=== PATIENT | male | born 1970 | race Caucasian/White ===

== ENCOUNTER → 2019-04-13 15:31 | Outpatient (CLI) | payer OTHER, MEDICAID, SELFPAY | PROVIDERS: Family Provider Family Medicine; PCP Family Medicine; Visit Provider Physician Assistant | DX: R07.0 Pain in throat (principal) | CPT/HCPCS: 87070; 87077; 87147 ==

== ENCOUNTER → 2021-01-20 08:03 | Outpatient (CLI) | payer OTHER, MEDICAID, SELFPAY ==
[2021-01-20 09:32] LABS: Add Manual Diff / Slide Review NO; Basophils Absolute Auto 0 /uL (0-100); Basophils Percent Auto 0.6 % (0-2); Eosinophils Absolute Auto 500 /uL (0-450); Eosinophils Percent Auto 7.2 % (2-4); Hemoglobin 16.2 g/dL (13.5-17.5); Lymphocytes Absolute Auto 1800 /uL (1100-4500); Lymphocytes Percent Auto 25.9 % (25-40); Mean Corpuscular HGB Conc 34.5 % (30-36); Mean Corpuscular Hemoglobin 31.1 PG (26-34); Mean Corpuscular Volume 90.1 fL (80-100); Monocytes Absolute Auto 700 /uL (0-900); Monocytes Percent Auto 9.9 % (3-14); Neutrophils Absolute Auto 3900 /uL (1500-7000); Neutrophils Percent Auto 56.4 % (50-75); Platelet Count 172 X10^3/uL (150-400); Red Blood Cell Count 5.21 X10^6/uL (4.5-5.9); Red Cell Distribution Width 12.4 % (11.6-14.8); White Blood Cell Count 6.9 X10^3/uL (4.5-11.0)
[2021-01-20 10:12] LABS: Hemoglobin A1C% w Est Avg Glu 11.6 % (4.0-6.0)
[2021-01-20 10:19] LABS: Alanine Aminotransferase 69 IU/L (<50); Albumin 4.1 g/dL (3.5-5.0); Albumin Globulin Ratio 1.3 (1.0-2.8); Alkaline Phosphatase 72 U/L (38-126); Aspartate Aminotransferase 53 IU/L (17-59); BUN Creatinine Ratio 21.7 (6-22); Bilirubin Total 0.5 mg/dL (0.2-1.3); Blood Urea Nitrogen 15 mg/dL (9-20); Calcium 9.6 mg/dL (8.4-10.2); Carbon Dioxide 22 mmol/L (22-32); Chloride 106 mmol/L (98-107); Cholesterol 170 mg/dL (140-199); Estimated Glomerular Filt Rate > 60.0 mL/min (>60); Globulin 3.1 g/dL (1.7-4.1); Glucose 315 mg/dL (70-100); HDL Cholesterol 28 mg/dL (40-60); HEMOLYSIS < 15 (0-50); Potassium 4.2 mmol/L (3.4-5.1); Sodium 138 mmol/L (137-145); Total Protein 7.2 g/dL (6.3-8.2)
[2021-01-20 10:27] LABS: Triglycerides 667 mg/dL (35-150)
[2021-01-20 10:52] LABS: TSH w/ Reflex to FT4 1.98 uIU/mL (0.47-4.68)
[2021-01-20 12:29] LABS: Creatinine Urine Random 76.1 mg/dL
[2021-01-20 12:35] LABS: Microalbumi Creatinin Ratio Ur 47.3 ug/mg CR (<30); Microalbumin Urine Random 3.6 mg/dL (0-1.6)
== END ==
PROVIDERS: Family Provider Family Medicine; PCP Family Medicine; Referring Provider Family Medicine; Visit Provider Family Medicine
DX: G47.33 Obstructive sleep apnea (adult) (pediatric) (principal)
CPT/HCPCS: 36415; 80053; 80061; 82043; 82570; 83036; 84443; 85025

== ENCOUNTER → 2021-02-17 10:26 | Outpatient (CLI) | payer OTHER, MEDICAID, SELFPAY ==
--- NOTE | 2021-02-17 12:27 | DIET.PN ---
Initial Diabetes Assessment Name: Drew Correa Date: 02/17/21 Time: 10:30a-12p Preferred Name: Bobby Dx: Type II Diabetes Provider: Giovanny Preferred Learning Style: All (hearing/reading/touching/doing); denies education barriers PMH: HLD, HTN, h/o diverticulitis, BMI >30, MITCHELL Bobby presents today with (Nicole) and two young children. FH of DM with paternal grandmother. Has noticed xerostomia, polydipsia, polyuria, fatigue, and mood changes over the last months. States he has many questions about diabetes, including questions about medication, lifestyle vs meds, genetic impact, A1c, weight loss, and nutrition. Reports eating 4 occurrences per day. Some meals high in CHO content, ie honeynut cheerios. Reports he loves juice and will often combine with SF soda. Plans to d/c sugar beverages. Drinking ?gallons? of water, especially at night due to xerostomia. 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 Interested in healthy cooking. He works weekdays 9a-5p. States family meals are sometimes hard with each family member?s preferences and dietary needs (children?s preferences, wheat free). Has been rx?d NPH and Metformin. Has not started either medication yet. Anthropometrics: Ht: 5?9? Wt: 246# Physical Activity: Gym 4 x per week for 60-90 min (60 m cardio + 30 min weight lifting). Self-Monitoring Blood Glucose: Questions today about how to check BG. Has seen RN for SMBG teach, but needing a review. Today he returned a demonstration of a blood sugar check with success. His blood sugar today one hour after part of a mocha was 354 mg/dL H. Pertinent Labs: HgA1c 11.6% H Diabetes Medications: Rx for NPH 15u q morning and Metformin 500 mg BID. None started yet. Intervention: This participant was very receptive. Provided appropriate educational handouts. Discussed the following topics: - Completed intake assessment. Discussed barriers to care. - Pathophysiology of T2DM - HgA1c and goal. - Medication action and rx and hypoglycemia tx with Rule of 15 - s/s of hyper- and hypoglycemia - Importance of self-monitoring, how often, and when to check. Suggested checking at different times to evaluate meals -Plate Method, impact of macronutrients on blood sugar, pairing macronutrients and for better BG mgmnt - SF beverages vs sugar sweetened impact on BG - Rec servings for carbohydrates at meals and snacks - Heart health nutrition briefly - Family nutrition - Role of physical activity and following provider guidelines for safety - Created SMART goals for pt self-care and success. Goals: - Start medications - Begin BG checks 1-2 x per day - Follow plate method for meals Follow-up: ROHIT PAYTON follow-up in 4 weeks. Encouraged him to call with questions prn. He was unable to schedule sooner due to family trips scheduled this month. Topics for next visit: meal timing, carb counting, spreading out CHO, meal planning, family nutrition, fats and fiber Marbella Whitman RDN, [facility] Certified Diabetes Care and Fiber Optic Central Office Installer P: [phone] Thank you for this referral
== END ==
PROVIDERS: Family Provider Family Medicine; PCP Family Medicine; Referring Provider Family Medicine; Visit Provider Family Medicine
DX: E11.9 Type 2 diabetes mellitus without complications (principal); E78.5 Hyperlipidemia, unspecified; E66.9 Obesity, unspecified; Z68.36 Body mass index [BMI] 36.0-36.9, adult; Z71.3 Dietary counseling and surveillance; G47.33 Obstructive sleep apnea (adult) (pediatric)
CPT/HCPCS: G0108

== ENCOUNTER → 2021-03-12 13:40 | Outpatient (CLI) | payer OTHER, MEDICAID, SELFPAY ==
--- NOTE | 2021-03-12 13:41 | DI.RAD.S_ITS ---
PROCEDURE: XR TIBIA FIBULA LT 2V INDICATIONS: leg pain TECHNIQUE: 2 views of the tibia and fibula were acquired. COMPARISON: [facility], CR, TIB/FIB 2V LEFT, 07/17/2015, 23:15. FINDINGS: Bones: No acute fractures or dislocations. No suspicious bony lesions. Healed proximal fibular fracture from 2016. Soft tissues: No suspicious soft tissue calcifications or masses. IMPRESSION: Normal for age, source of current leg pain symptoms is not seen. Dictated by: Oswald Koenig M.D. on 03/12/2021 at 15:38 Approved by: Oswald Koenig M.D. on 03/12/2021 at 15:38
--- NOTE | 2021-03-12 13:41 | DI.RAD.S_ITS ---
PROCEDURE: XR LUMBAR SPINE 2-3V INDICATIONS: low back pain TECHNIQUE: 3 views of the lumbar spine were acquired. COMPARISON: None. FINDINGS: Bones: No acute fracture identified. Anatomic alignment. Multilevel degenerative endplate sclerosis and spurring. Diffuse facet arthropathy. Disc spaces grossly preserved. Minimal levocurvature. Soft tissues: Overlying bowel gas pattern is normal. No suspicious soft tissue calcifications. IMPRESSION: Mild spondylitic changes as above and minimal levocurvature. If the patient's pain or other symptoms persist, consider further evaluation with MRI Dictated by: Avel Chisholm M.D. on 03/12/2021 at 14:43 Approved by: Avel Chisholm M.D. on 03/12/2021 at 14:45
== END ==
PROVIDERS: Family Provider Family Medicine; PCP Family Medicine; Referring Provider Family Medicine; Visit Provider Family Medicine
DX: M79.605 Pain in left leg (principal); M47.816 Spondylosis without myelopathy or radiculopathy, lumbar region; M54.5 Low back pain; G89.29 Other chronic pain
CPT/HCPCS: 72100; 73590

== ENCOUNTER → 2021-03-17 10:18 | Outpatient (CLI) | payer OTHER, MEDICAID, SELFPAY ==
--- NOTE | 2021-03-17 12:03 | DIAB.FU ---
Follow-up Diabetes Education Assessment Name: Drew Correa Date: 03/17/21 Time: [id number] Preferred Name: Bobby Dx: Type II Diabetes Provider: Giovanny PMH: HLD, HTN, h/o diverticulitis, BMI >30, MITCHELL Bobby has started DM medications-- Metformin and Glargine. Just recently returned home from family vacations. Eating out was a challenge while on vacation. Has some food, meter variability, and medication questions today. States he has read online that Metformin can decrease needed glucose to the brain and increase foggy feeling. Endorses some fatigue and fogginess, which seems more likely r/t hyperglycemia. He has noticed that if he checks blood sugars twice in an instance that readings can vary by 30-50 points, which is not unusual given meter variability of +/- 20% with some meters. Has kept a food log. Some meals >60g CHO (ie 2c rice = 90g CHO). Trying to limit potatoes and sugar specifically. High carb intake with mocha beverage x 20oz. Needing some guidance on label reading for carbs. Doing well with hydration (70-90oz daily) Anthropometrics: Ht: 5?9? Wt: 246# no wt changes Physical Activity: hiking while on vacation. Barrier recently: calf/back pain. Elliptical and bike do not cause pain. Walking/treadmill associated with pain. Has returned to the gym recently-- cardio yesterday on machine x 60 min. Last visit reported PA: Gym 4 x per week for 60-90 min (60 m cardio + 30 min weight lifting). Self-Monitoring Blood Glucose: Readings have improved, though still above target. Elevations seem r/t to diet and he also may benefit from increase in Metformin. Glucose readings weeks prior ranging from 200-350 mg/dL. Discussed potential for increase in Metformin Encouraged him to discuss plan with provider today, he agreed. Date Pre Post Pre Post Pre Post HS 03/10 205 192 9/2 169 93 203 209 03/13 162 9 201 277 6 188 03/16 215 239 Pertinent Labs: HgA1c 11.6% H Diabetes Medications: Taking Metformin 500 mg BID. No increase to 1000 mg BID as mentioned in provider notes. Would benefit from increase. He plans to discuss with provider today at appt. Also taking 15 u glargine (pen) HS. Intervention: This participant was very receptive. Provided appropriate educational handouts. Discussed the following topics: - Medication education and safety - Meter variability and trends - Type 3 diabetes and hyperglycemia - Provided reliable online sources for DM information (diabetes.org) - Meal planning , carb counting, spreading eating occurrences out over the day, label reading, and impact of high carb beverages on blood sugars, macronutrient pairing - BG review, goals and medication - physical activity impact on BG - Saturated fats and heart health Goals: - Start medications - met - Begin BG checks 1-2 x per day- met - Follow plate method for meals- in progress - Start carb counting- new - Discuss med recommendation plan with provider- new - Practice label reading for net carbs- new - Pair protein with carbohydrates- new Follow-up: ROHIT PAYTON follow-up in 3 weeks. Topics for next visit: snack options, family nutrition, fats and fiber, complication risk reduction, ongoing support/resources Marbella Whitman RDN, [facility] Certified Diabetes Care and Duplicating Machine Servicer P: [phone] Thank you for this referral
== END ==
PROVIDERS: Family Provider Family Medicine; PCP Family Medicine; Referring Provider Family Medicine; Visit Provider Family Medicine
DX: E11.9 Type 2 diabetes mellitus without complications (principal); E78.5 Hyperlipidemia, unspecified; I10 Essential (primary) hypertension; E66.9 Obesity, unspecified; Z68.36 Body mass index [BMI] 36.0-36.9, adult; Z71.3 Dietary counseling and surveillance; Z79.84 Long term (current) use of oral hypoglycemic drugs
CPT/HCPCS: G0108

== ENCOUNTER → 2021-04-29 10:52 | Outpatient (CLI) | payer OTHER, MEDICAID, SELFPAY ==
--- NOTE | 2021-04-29 16:46 | DIAB.FU ---
Follow-up Diabetes Education Assessment Name: Drew Correa Date: 04/29/21 Time: 11a-12p Preferred Name: Bobby Dx: Type II Diabetes Provider: Giovanny PMH: HLD, HTN, h/o diverticulitis, BMI >30, MITCHELL Bobby presents today for Dm follow-up. He is struggling to manage his HTN. Has been in contact with provider office and RNs to manage this. Also has appt with provider next week. Reports elevations of BP in 170s/120s. Wants to exercise today, but concerned about his BP changes and activity. Endorses some high sodium food intake over the last couple days as well with take-out pizza x 900 mg sodium per sitting. Denies any symptoms with elevated BP. Encouraged him to call RN again for recs on working out at this time. Blood sugars continue elevated. States he goes long periods of times without eating and then eats large portions. Often lacks time in the morning to have breakfast before work. Reports difficulty with wasting food that his children don't eat, ie processed frozen sandwiches. States he ends up eating these foods to prevent waste. Grew up with grandmother encouraging eating all food offered despite hunger/fullness due to her Depression era experience. Has completed his dilated eye exam for this year, which was reportedly unremarkable. Physical Activity: Started En chi recently weekly. Also has PT weekly. Also has been going to the gym. Making efforts to lose weight, but reports limited changes, maybe a pound. Self-Monitoring Blood Glucose: Continued hyperglycemia. Taking same insulin dose as last visit. Bobby may be a good candidate for an SGLT2i or GLP1 RA if provider agrees. If he continues with current regimen, will need to increase Glargine per protocol to improve FBG. All recent readings, including ac or pc, are above target in 200s. (mg/dL) 7 day av 14 day av 30 day av Pertinent Labs: HgA1c 11.6% H Diabetes Medications: Taking Metformin BID; 15 u glargine (pen) HS. Past Medical History: (Last Updated 02/11/21 @ 10:05 by Cresencio Baltazar MD) Diabetes mellitus type 2 in obese History of diverticulitis (06/16/15) Hyperlipidemia associated with type 2 diabetes mellitus Hypertension Intervention: This participant was very receptive. Provided appropriate educational handouts. Discussed the following topics: - DM medications and insulin protocol - Importance of consistent intake to avoid over consumption - Family nutrition dynamics (ie clean plate club, division of responsibility) - BP goals for those with DM - Impact of BG and BP on complication risk Goals: - Follow plate method for meals- improved - Start carb counting- not met - Practice label reading for net carbs- not met - Pair protein with carbohydrates- met - Increase insulin to 18u tonight and then increase 2u q 2-3 days until FBG <130 mg/dL- new - Call RN for HTN and workout questions- new - Prep a snack or to-go breakfast the night before to reduce long fasting periods- new Follow-up: ROHIT PAYTON follow-up in 3-4 weeks. Topics for next visit: snack options, fats and fiber, complication risk reduction, ongoing support/resources Marbella Whitman RDN, [facility] Certified Diabetes Care and Production Truck Driver P: [phone] Thank you for this referral
== END ==
PROVIDERS: Family Provider Family Medicine; PCP Family Medicine; Referring Provider Family Medicine; Visit Provider Family Medicine
DX: E11.69 Type 2 diabetes mellitus with other specified complication (principal); E78.5 Hyperlipidemia, unspecified; I10 Essential (primary) hypertension
CPT/HCPCS: G0108

== ENCOUNTER → 2021-05-03 07:05 | Outpatient (CLI) | payer OTHER, MEDICAID, SELFPAY ==
[2021-05-03 08:36] LABS: Hemoglobin A1C% w Est Avg Glu 9.4 % (4.0-6.0)
== END ==
PROVIDERS: Family Provider Family Medicine; PCP Family Medicine; Referring Provider Family Medicine; Visit Provider Family Medicine
DX: E11.69 Type 2 diabetes mellitus with other specified complication (principal); E66.9 Obesity, unspecified
CPT/HCPCS: 36415; 83036

== ENCOUNTER → 2021-05-24 09:44 | Outpatient (CLI) | payer OTHER, MEDICAID, SELFPAY ==
[2021-05-24 12:01] LABS: COVID19 -Nasal RAPID Negative (Negative)
== END ==
PROVIDERS: Family Provider Family Medicine; PCP Family Medicine; Visit Provider Physician Assistant
DX: Z01.812 Encounter for preprocedural laboratory examination (principal); Z20.822 Contact with and (suspected) exposure to COVID-19
CPT/HCPCS: 87635

== ENCOUNTER → 2021-05-24 09:50 | Outpatient (CLI) | payer OTHER, MEDICAID, SELFPAY ==
--- NOTE | 2021-05-25 09:14 | PM.TREADMILL ---
Cardiac Stress Test Report Referral & Results Date Patient Seen: 05/25/21 Time Patient Seen: 09:00 Requesting provider: Cresencio Baltazar Indication: Abnormal EKG Rest ECG: Normal sinus rhythm, T-wave inversion in lead 3. Procedure Note: Today following both written and verbal informed consent the patient was exercised according to a standard Curtis protocol patient went for a total of 9 minutes 20 seconds achieving a maximum heart rate of 153 maximum systolic blood pressure of 162. This is approximately 10.1 METs. Exercise was terminated at this point because of fatigue. Patient was also given Cardiolite through a previously started Hep-Lock IV by the supervisor nuclear medicine approximately 1 minute prior to the cessation of exercise. Normal hemodynamic response to exercise. Unexpectedly rapid normalization of blood pressure at rest. Frequent PVCs at peak exercise. No other change in rhythm and no exercise-induced ST deviations. Normal exercise capacity (FA I +5% on active scale). No signs or symptoms of angina. Impression: Low probability for ischemia. Frequent PVCs at peak exercise are in independent risk factor for cardiac mortality. Perfusion imaging pending. Please note: Actual ECG tracings can be found in the PACS system.
--- NOTE | 2021-05-25 18:10 | DI.NM.S_ITS ---
DATE OF SERVICE: PROCEDURE: Exercise perfusion study. DATE OF STUDY: May 25, 2021. INDICATIONS: Abnormal EKG with underlying diabetes mellitus, hypertension and hyperlipidemia. RADIOPHARMACEUTICAL: 26.6 millicurie technetium-99m Myoview IV was injected at stress and 26.1 millicurie technetium-99m Myoview IV was injected at rest. It was a two day protocol. CARDIAC STRESS: The patient underwent exercise perfusion study under the supervision of an attending staff. The patient walked on Curtis protocol for 9 minutes and 20 seconds, achieved 91 percent of target heart rate and normal blood pressure response. Resting blood pressure 122/90. Peak blood pressure 162/98. The patient achieved 10.1 METS of workload and functional aerobic impairment positive 5 percent. Baseline rhythm was sinus with T-wave inversion in lead L3 and AVF. During stress, there were no convincing EKG changes. The patient has frequent PVCs at peak exercise without any ventricular tachycardia. No symptoms of angina. RAW DATA: Adequate myocardial uptake. GATED STUDY: Stress LV ejection fraction 75 percent without any obvious wall motion abnormalities. Resting end-diastolic volume 99 mL. TID ratio 0.93, which is within normal limits. Lung/heart ratio 0.37, which is within normal limits. MYOCARDIAL PERFUSION SCAN: Stress supine, resting supine and stress prone images revealed normal myocardial perfusion. CONCLUSION: This is a normal myocardial perfusion study. The patient walked on Curtis protocol for 9 minutes and 20 seconds and achieved 10.1 METS of workload. Normal hemodynamic response. No anginal symptoms. No convincing ischemic changes. Frequent PVCs at peak exercise without any ventricular tachycardia. In view of normal myocardial perfusion, preserved left ventricular function and 10.1 METS of exercise capacity, overall low risk study. Drew Correa - KNOWLEDGE MANAGEMENT CONSULTANT/sulaiman/cs doc#: [id number]/job#: [id number] dd: 05/25/2021 17:25:00 dt: 05/25/2021 18:02:00 DICTATING /COPIES TO: Justyn Cancino MD COPIES MNE: TRACE;
== END ==
PROVIDERS: Family Provider Family Medicine; PCP Family Medicine; Referring Provider Family Medicine; Visit Provider Family Medicine
DX: R94.31 Abnormal electrocardiogram [ECG] [EKG] (principal); I45.9 Conduction disorder, unspecified; Z20.822 Contact with and (suspected) exposure to COVID-19
CPT/HCPCS: 78452; 87635; 93016; 93017; 93018; C9803; A9502

== ENCOUNTER → 2021-06-17 12:58 | Outpatient (CLI) | payer OTHER, MEDICAID, SELFPAY ==
--- NOTE | 2021-06-18 16:14 | DIAB.FU ---
Follow-up Diabetes Education Assessment Name: Drew Correa (Bobby) Date: 06/17/21 Time: 1-2p Dx: Type II Diabetes Bobby reports improvement in his BP since last visit with most readings in the 140s/80s. Recently f/u with Dr. Cristobal for stress test. States he was incorrectly injecting insulin, which may have resulted in elevated readings. His pharmacist helped him determine the issue and has since been resolved (over the last 4-6 days). 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 He then comes home very hungry and often will eat a very high carb meal. Endorses a meal with approx 215g CHO (starch veg, polenta, corn, lemonade, blizzard, and sherbert). This resulted in a Bg of 295 mg/dL. Bobby was unsure why his BG was so high when he had not eaten all day. Also endorses eating foods because the kids won't, which we did discuss at length last visit. Physical Activity: States he has increased activity with 60 min of cardio daily (walking, elliptical, some weights). States he is unsure why he has not been able to lose weight. Seems diet may be the barrier. States PT is done for his back, but he is still feeling some discomfort in back. Self-Monitoring Blood Glucose: Most readings elevated, likely due to incorrect injection of insulin and high carb intake. All are above 200 mg/dL with today's lunch reading as the only exception (30g CHO sandwich). Seems with lower carb intake, his BG may be in much better shape, however FBG continue above goal and he likely needs to titrate up per protocol. Date Pre Post Pre Post Pre Post HS 06/17 258 171 sandwich 06/16 295 06/10 230 06/09 218 06/07 212 06/06 229 06/04 211 Last visit: (mg/dL) 7 day av 14 day av 30 day av Today: (mg/dL) 7 day av 14 day av 30 day av Pertinent Labs: HgA1c 9.4% H (improved from 11.6%) Diabetes Medications: Taking Metformin BID; 24 u glargine (pen) HS. Pertinent Labs: Past Medical History: (Last Updated 05/17/21 @ 10:53 by Bree Crowley RN) Allergic rhinitis Chronic low back pain Diabetes mellitus type 2 in obese History of diverticulitis (06/16/15) Hyperlipidemia associated with type 2 diabetes mellitus Hypertension Intranasal synechiae Nasal septal deviation MITCHELL treated with BiPAP Status post laparoscopic colectomy Intervention: This participant was very receptive. Provided appropriate educational handouts. Discussed the following topics: Recent blood sugar results and trends Medication management and titration of insulin Review of general nutrition recommendations and current intake Reviewed carb counting Physical activity plan and impact on blood sugars Created SMART goals for patient self-care and success. Goals: Increase insulin to 18u tonight and then increase 2u q 2-3 days until FBG <130 mg/dL- 50% met Call RN for HTN and workout questions- d/c Prep a snack or to-go breakfast the night before to reduce long fasting periods- not met inc insulin 1-2 u q 2-3 days until FBG <130 mg/dL- in progress Keep carbs at meals to 1-1.5c - new Take a protein bar to work- new Add protein to fruit for snack- new Follow-up: ROHIT PAYTON follow-up in 2-3 weeks aMrbella Whitman RDN, [facility] Certified Diabetes Care and Director Of Safety P: [phone] Thank you for this referral
== END ==
PROVIDERS: Family Provider Family Medicine; PCP Family Medicine; Referring Provider Family Medicine; Visit Provider Family Medicine
DX: E11.9 Type 2 diabetes mellitus without complications (principal); Z71.3 Dietary counseling and surveillance; Z79.4 Long term (current) use of insulin; Z79.84 Long term (current) use of oral hypoglycemic drugs
CPT/HCPCS: G0108

== ENCOUNTER → 2021-06-30 12:10 | Outpatient (CLI) | payer OTHER, MEDICAID, SELFPAY ==
[2021-06-30 12:52] LABS: COVID19 -Nasal RAPID Negative (Negative)
== END ==
PROVIDERS: Family Provider Family Medicine; PCP Family Medicine; Visit Provider Nurse Practitioner Family
DX: R53.83 Other fatigue (principal); R51.9 Headache, unspecified; J02.9 Acute pharyngitis, unspecified
CPT/HCPCS: 87635

== ENCOUNTER → 2021-07-08 11:47 | Outpatient (CLI) | payer OTHER, MEDICAID, SELFPAY ==
[2021-07-08 12:48] LABS: Alanine Aminotransferase 64 IU/L (<50); Albumin 4.6 g/dL (3.5-5.0); Albumin Globulin Ratio 1.4 (1.0-2.8); Alkaline Phosphatase 59 U/L (38-126); Aspartate Aminotransferase 60 IU/L (17-59); BUN Creatinine Ratio 17.4 (6-22); Bilirubin Total 0.7 mg/dL (0.2-1.3); Blood Urea Nitrogen 15 mg/dL (9-20); Calcium 9.8 mg/dL (8.4-10.2); Carbon Dioxide 25 mmol/L (22-32); Chloride 105 mmol/L (98-107); Cholesterol 116 mg/dL (140-199); Estimated Glomerular Filt Rate > 60.0 mL/min (>60); Globulin 3.2 g/dL (1.7-4.1); Glucose 167 mg/dL (70-100); HDL Cholesterol 24 mg/dL (40-60); HEMOLYSIS 20 (0-50); Potassium 4.1 mmol/L (3.4-5.1); Sodium 141 mmol/L (137-145); Total Protein 7.8 g/dL (6.3-8.2); Triglycerides 429 mg/dL (35-150)
[2021-07-08 15:54] LABS: Microalbumin Urine Random 1.9 mg/dL (0-1.6)
[2021-07-08 15:58] LABS: Creatinine Urine Random 81.3 mg/dL; Microalbumi Creatinin Ratio Ur 23.3 ug/mg CR (<30)
[2021-07-08 16:58] LABS: Hemoglobin A1C% w Est Avg Glu 8.8 % (4.0-6.0)
== END ==
PROVIDERS: Family Provider Family Medicine; PCP Family Medicine; Referring Provider Family Medicine; Visit Provider Family Medicine
DX: E11.69 Type 2 diabetes mellitus with other specified complication (principal); E78.5 Hyperlipidemia, unspecified; I10 Essential (primary) hypertension; E66.9 Obesity, unspecified
CPT/HCPCS: 36415; 80053; 80061; 82043; 82570; 83036

== ENCOUNTER → 2021-07-08 13:04 | Outpatient (CLI) | payer OTHER, MEDICAID, SELFPAY ==
--- NOTE | 2021-07-08 16:39 | DIAB.FU ---
Follow-up Diabetes Education Assessment Name: Drew Correa (Bobby) Date: 07/08/21 Time: 1-2p Dx: Type II Diabetes Bobby presents for follow-up diabetes ed. States he has been more conscious of carb portions and trying to keep portions at meals to 1-1.5c. States this is a challenge for him. Reports large protein portions to feel full. This seems r/t long periods of fasting during the day, which continues to be a barrier for him. Reports he gets caught up in work or errands and forgets to eat or does not want to eat fast food so does not eat at all. Has not brought bars or snacks to work, but he has been working much less with the holiday. States he took time off from dieting and BG monitoring during [place]. Endorses high sugar and kcal intake over the holiday. Plans to go to [place] for a vacation in July. He is concernd about potential for high carb and kcal intake during family trip with eating out. Has concerns about increasing Lantus due to potential weight gain. Continues to experience hyperglycemia in the morning and some evenings. States he is frustrated with lack of weight loss since starting the gym, however his weight concerns may be more r/t nutrition. Reports flatulence causing pain and embarrassment. Attributes this change in GI to meds. Not taking Metformin with food. New labs today. Labs indicate reduction in cholesterol, glucose and TG. Still waiting on hgA1c. Anthropometrics: Ht: 69 Wt: 245-250# (reported) Physical Activity: 60 min cardio, 20 min wt lifting 3-5 days per week Self-Monitoring Blood Glucose: Reports elevated FBG of 150-170s. No meter today, but reports recent readings below. 152 H - fasting 193 H - last night 170 -yesterday unknown time 156 in range - two nights ago Diabetes Medications: 24u Lantus Metformin 1000 mg BID Empagliflozin 25 mg daily Pertinent Labs: HgA1c 9.4% (04/2021). Completed new labs today and awaiting HgA1c. 07/08/21 glucose: 167 H (was 315 01/2021) AST: 60 H ALT: 64 H T H (was 667 01/2021) Cholesterol: 116 (170 on 01/2021) HDL: 24 L Past Medical History: (Last Updated 05/17/21 @ 10:53 by Bree Crowley RN) Allergic rhinitis Chronic low back pain Diabetes mellitus type 2 in obese History of diverticulitis (06/16/15) Hyperlipidemia associated with type 2 diabetes mellitus Hypertension Intranasal synechiae Nasal septal deviation MITCHELL treated with BiPAP Status post laparoscopic colectomy Intervention: This participant was very receptive. Provided appropriate educational handouts. Discussed the following topics: Recent blood sugar results and trends Medication management: insulin function/action and how to manage weight gain Review of general nutrition recommendations and current intake Food tracking for weight management using apps Physical activity plan and impact on blood sugars Holiday and vacation eating Created SMART goals for patient self-care and success. Goals: inc insulin 1-2 u q 2-3 days until FBG <130 mg/dL- not met Keep carbs at meals to 1-1.5c - in progress Take a protein bar to work- not met Add protein to fruit for snack- met Keep balanced snack in car- new Track food intake until next visit- new Take Metformin with food- new Follow-up: ROHIT PAYTON follow-up in 4 weeks Marbella Whitman RDN, [facility] Certified Diabetes Care and Creel Clerk P: [phone] Thank you for this referral
== END ==
PROVIDERS: Family Provider Family Medicine; PCP Family Medicine; Referring Provider Family Medicine; Visit Provider Family Medicine
DX: E11.9 Type 2 diabetes mellitus without complications (principal); Z79.4 Long term (current) use of insulin
CPT/HCPCS: G0108

== ENCOUNTER 2021-07-20 15:38 | Emergency (ER) | payer OTHER, MEDICAID, SELFPAY ==
[2021-07-20 16:07] VITALS: BP 151/85; PULSE 90; RESP 18; TEMP 36.6; O2SAT 97; BMI 36.9
[2021-07-20 16:39] LABS: Add Manual Diff / Slide Review NO; Basophils Absolute Auto 100 /uL (0-100); Basophils Percent Auto 0.9 % (0-2); Eosinophils Absolute Auto 300 /uL (0-450); Eosinophils Percent Auto 2.8 % (2-4); Hematocrit 46.8 % (41-53); Hemoglobin 16.1 g/dL (13.5-17.5); Lymphocytes Absolute Auto 1500 /uL (1100-4500); Lymphocytes Percent Auto 12.7 % (25-40); Mean Corpuscular HGB Conc 34.4 % (30-36); Mean Corpuscular Hemoglobin 30.4 PG (26-34); Mean Corpuscular Volume 88.3 fL (80-100); Monocytes Absolute Auto 1600 /uL (0-900); Monocytes Percent Auto 13.6 % (3-14); Neutrophils Absolute Auto 8000 /uL (1500-7000); Platelet Count 220 X10^3/uL (150-400); Red Cell Distribution Width 13.1 % (11.6-14.8); White Blood Cell Count 11.4 X10^3/uL (4.5-11.0)
[2021-07-20] MEDS: IBUPROFEN 400 MG TABLET PO (16:48)
[2021-07-20 16:58] LABS: Alanine Aminotransferase 46 IU/L (<50); Albumin 4.7 g/dL (3.5-5.0); Albumin Globulin Ratio 1.3 (1.0-2.8); Alkaline Phosphatase 69 U/L (38-126); Aspartate Aminotransferase 44 IU/L (17-59); BUN Creatinine Ratio 17.4 (6-22); Bilirubin Total 1.2 mg/dL (0.2-1.3); Blood Urea Nitrogen 15 mg/dL (9-20); Calcium 9.6 mg/dL (8.4-10.2); Carbon Dioxide 28 mmol/L (22-32); Chloride 100 mmol/L (98-107); Estimated Glomerular Filt Rate > 60.0 mL/min (>60); Globulin 3.7 g/dL (1.7-4.1); Glucose 142 mg/dL (70-100); HEMOLYSIS 17 (0-50); Lipase 75 U/L (23-300); Potassium 3.7 mmol/L (3.4-5.1); Sodium 138 mmol/L (137-145); Total Protein 8.4 g/dL (6.3-8.2)
--- NOTE | 2021-07-20 17:59 | DI.CT.S_ITS ---
PROCEDURE: CT ABDOMEN PELVIS W CON INDICATIONS: abd pain, hx divert with perf TECHNIQUE: After the administration of intravenous contrast, axial sections acquired from the lung bases to the pubic symphysis. Coronal and sagittal reformats were performed. For radiation dose reduction, the following was used: automated exposure control, adjustment of mA and/or kV according to patient size. COMPARISON: [facility], CT, ABDOMEN/PELVIS WITH CONTRAST, 05/21/2013, 7:33. FINDINGS: Innumerable sigmoid and distal colonic diverticula present. Proximal sigmoid colonic wall thickening with adjacent fat stranding and engorged Vasa recta. No free air or free fluid. Remainder of the bowel is normal. Appendix unremarkable. Mild hepatomegaly and diffuse moderate hepatic steatosis. Remaining solid abdominal visceral structures are within normal limits. No threshold enlarged intra-abdominal, retroperitoneal, pelvic, or inguinal lymph node. Urinary bladder in prostate are unremarkable. Nonaneurysmal abdominal aorta. There is a 3 millimeter nodule in the right lower lobe on series 2, image 5 which is unchanged from 2013 exam. IMPRESSION: Acute sigmoid diverticulitis without evidence of perforation, adjacent abscess, or other complicating feature. Dictated by: Juancarlos Robledo M.D. on 07/20/2021 at 17:30 Approved by: Juancarlos Robledo M.D. on 07/20/2021 at 17:33
[2021-07-20] MEDS: SODIUM CHLORIDE 0.9% 1,000 ML 1000 ML IV (18:02)
--- NOTE | 2021-07-20 18:09 | ED.ABDPAIN ---
HPI - Abdominal Pain <Paulina MonteroISSAP-BC - Last Filed: 07/20/21 19:41> General Chief Complaint: Abdominal Pain Stated Complaint: LEFT SIDE ABDOMINAL PAIN Time Seen by Provider: 07/20/21 17:49 Source: patient Mode of arrival: Ambulatory Limitations: no limitations History of Present Illness HPI narrative: The patient is a 51-year-old male former smoker with history of C diff, diverticulitis with perforation who presents to the emergency department with diffuse abdominal pain. He states that it started on his right side rate down to his left and around to his back. He has had some soft stools, but states that is nothing like when he had C diff. He denies any fevers muscle aches or chills. Says primary care provider and took 1 day of amoxicillin, was then changed to Augmentin which she has not started yet. He states he is concerned because he is not feeling any better, and his is especially concerned given his history of perforation. Denies any dysuria or urgency, denies any history of kidney stones. Related Data Home Medications Medication Instructions Recorded Confirmed amlodipine 5 mg tablet 5 mg PO 05/17/21 07/19/21 Previous Rx's Medication Instructions Recorded atorvastatin 40 mg tablet 40 mg PO BEDTIME #90 tab 02/11/21 blood-glucose meter (Blood Glucose #1 ea 02/11/21 Monitoring) lancets 23 gauge #100 ea 02/11/21 pen needles #100 ea 02/11/21 insulin glargine 100 unit/mL (3 15 unit (0.15 mL) SUBCUT QPM #15 ml 02/19/21 mL) subcutaneous pen (Lantus Solostar U-100 Insulin) blood sugar diagnostic (True #100 ea 03/17/21 Metrix Glucose Test Strip) empagliflozin 10 mg tablet 10 mg PO DAILY #7 tab 05/03/21 (Jardiance) empagliflozin 25 mg tablet 25 mg PO DAILY #90 tab 05/03/21 (Jardiance) losartan 100 1 tab PO DAILY #90 tab 05/03/21 mg-hydrochlorothiazide 25 mg tablet methocarbamol 750 mg tablet 750 mg PO Q8H PRN #30 tab 06/18/21 tramadol 50 mg tablet 50 mg PO BID PRN #14 tab 06/18/21 metformin 1,000 mg tablet,extended 1,000 mg PO BID #180 tab 07/13/21 release 24hr amoxicillin 875 mg-potassium 1 tab PO TID #30 tab 07/20/21 clavulanate 125 mg tablet (Augmentin) hydrocodone 5 mg-acetaminophen 325 1 tab PO Q4-6H PRN #10 tab 07/20/21 mg tablet ondansetron 4 mg disintegrating 4 mg PO Q6H PRN #20 tab 07/20/21 tablet Allergies Allergy/AdvReac Type Severity Reaction Status Date / Time grass pollen Allergy Mild Verified 07/13/21 09:30 mold Allergy Mild Verified 07/13/21 09:30 tree and shrub pollen Allergy Mild Verified 07/13/21 09:30 metronidazole AdvReac Intermediate C. Diff Verified 07/13/21 09:30 ciprofloxacin [From CIPRO] AdvReac Mild GI Upset Verified 07/13/21 09:30 Review of Systems <ZULAY Beckham - Last Filed: 07/20/21 19:41> Review of Systems Narrative: GENERAL: See HPI HEENT: Denies sinus pain, ear pain, sore throat, difficulty swallowing, dizziness. RESPIRATORY: Denies dyspnea, cough, wheezing, hemoptysis, sputum. CARDIOVASCULAR: Denies chest pain, palpitations, orthopnea, edema, GASTROINTESTINAL: See HPI : Denies dysuria, frequency, incontinence, hematuria, urinary retention. MUSCULOSKELETAL: denies weakness, joint pain, or bony pain SKIN: Denies rash, skin lesions, or other NEUROLOGIC: Denies weakness, headache, numbness, change in speech, confusion, seizures, incoordination. PSYCHIATRIC: No concerning psychosocial issues. 12 point review of systems is negative except for those stated above Patient History <ZULAY Beckham - Last Filed: 07/20/21 19:41> Medical History Abdominal pain Allergic rhinitis Chronic low back pain Diabetes mellitus type 2 in obese History of diverticulitis (06/16/15) Hyperlipidemia associated with type 2 diabetes mellitus Hypertension Intranasal synechiae Nasal septal deviation MITCHELL treated with BiPAP Surgical History (Updated 05/17/21 @ 10:55 by Bree Crowley RN) Status post laparoscopic colectomy Social History household members: spouse Smoking Status: Former smoker Tobacco: How many years used: 35 quit status: has quit before alcohol intake: current substance use type: former substance user (Quit February 2020 ) and marijuana (former ) Smoking Status: Former smoker Substance Use Type: does not use Exam <ZULAY Beckham - Last Filed: 07/20/21 19:41> Narrative Exam Narrative: GENERAL: This is a well-nourished, well-developed patient, in no acute distress HEAD: Atraumatic. Normocephalic. No temporal or scalp tenderness. EYES: Pupils equal round and reactive. Extraocular motions intact. No scleral icterus. No injection or drainage. ENT: Nose without bleeding, purulent drainage or septal hematoma. Throat without erythema, tonsillar hypertrophy or exudate. Uvula midline. Airway patent. NECK: Trachea midline. No JVD or lymphadenopathy. Supple, nontender, no meningeal signs. CARDIOVASCULAR: Regular rate and rhythm RESPIRATORY: Clear to auscultation. Breath sounds equal bilaterally. No wheezes, rales, or rhonchi. No cough. No increased respiratory effort. No accessory muscle use. GASTROINTESTINAL: Abdomen soft, non-tender, nondistended. No hepato-splenomegaly, or palpable masses. No guarding. Active bowel sounds all 4 quadrants. Diffusely tender to palpation. EXTREMITIES: No clubbing, cyanosis, or edema. No joint tenderness, effusion, or edema noted. BACK: Nontender without deformity or crepitance. No flank tenderness. NEURO: AOx3. SKIN: No rash or erythema on visible skin Initial Vital Signs Initial Vital Signs: Vital Signs Temperature 97.8 F 07/20/21 16:07 Pulse Rate 90 07/20/21 16:07 Respiratory Rate 18 07/20/21 16:07 Blood Pressure 151/85 H 07/20/21 16:07 Pulse Oximetry 97 07/20/21 16:07 <Ish Reilly DO - Last Filed: 07/20/21 23:16> Initial Vital Signs Initial Vital Signs: Vital Signs Temperature 97.8 F 07/20/21 16:07 Pulse Rate 90 07/20/21 16:07 Respiratory Rate 18 07/20/21 16:07 Blood Pressure 151/85 H 07/20/21 16:07 Pulse Oximetry 97 07/20/21 16:07 Scores <ZULAY Beckham - Last Filed: 07/20/21 19:41> GCS [place] coma scale eye opening: Spontaneous [place] coma scale verbal response: Orientated Susan coma scale motor response: Obey commands [place] coma scale total score: 15 <Ish Reilly DO - Last Filed: 07/20/21 23:16> GCS Susan coma scale total score: 15 Course <BRANDT Beckham-BC - Last Filed: 07/20/21 19:41> Orders Ordered: ED Orders 07/20/21 16:16 EKG-12 Lead Stat 07/20/21 16:20 Complete Blood Count AUTO DIFF Stat Comprehensive Metabolic Panel Stat Lipase Stat 07/20/21 17:59 CT abdomen pelvis w con Stat Discontinued Medications Sodium Chloride (Normal Saline 0.9%) 1,000 mls @ 1,000 mls/hr IV BOLUS ONE Stop: 07/20/21 18:58 Last Infusion: 07/20/21 19:26 Dose: 0 mls/hr Documented by: Admin: 07/20/21 18:02 Dose: 1,000 mls/hr Documented by: JUAN Ibuprofen (Ibuprofen 400 Mg Tablet) 400 mg PO NOW ONE Stop: 07/20/21 16:45 Last Admin: 07/20/21 16:48 Dose: 400 mg Documented by: MADELYN Vital Signs Vital signs: Vital Signs - 8 hr 07/20/21 16:07 07/20/21 18:31 07/20/21 19:00 Temperature 97.8 F Pulse Rate 90 90 87 Respiratory Rate 18 18 17 Blood Pressure 151/85 H 123/65 Pulse Oximetry 97 96 95 07/20/21 19:01 Temperature Pulse Rate 86 Respiratory Rate 24 Blood Pressure 128/79 Pulse Oximetry 95 <Ish Reilly DO - Last Filed: 07/20/21 23:16> Orders Ordered: ED Orders 07/20/21 16:16 EKG-12 Lead Stat 07/20/21 16:20 Complete Blood Count AUTO DIFF Stat Comprehensive Metabolic Panel Stat Lipase Stat 07/20/21 17:59 CT abdomen pelvis w con Stat Discontinued Medications Sodium Chloride (Normal Saline 0.9%) 1,000 mls @ 1,000 mls/hr IV BOLUS ONE Stop: 07/20/21 18:58 Last Infusion: 07/20/21 19:26 Dose: 0 mls/hr Documented by: Admin: 07/20/21 18:02 Dose: 1,000 mls/hr Documented by: JUAN Ibuprofen (Ibuprofen 400 Mg Tablet) 400 mg PO NOW ONE Stop: 07/20/21 16:45 Last Admin: 07/20/21 16:48 Dose: 400 mg Documented by: MADELYN Vital Signs Vital signs: Vital Signs - 8 hr 07/20/21 16:07 07/20/21 18:31 07/20/21 19:00 Temperature 97.8 F Pulse Rate 90 90 87 Respiratory Rate 18 18 17 Blood Pressure 151/85 H 123/65 Pulse Oximetry 97 96 95 07/20/21 19:01 Temperature Pulse Rate 86 Respiratory Rate 24 Blood Pressure 128/79 Pulse Oximetry 95 MDM - Abdominal Pain <BRANDT Beckham- - Last Filed: 07/20/21 19:41> Lab Data Attestation: I reviewed the patient's lab results. Result diagrams: 07/20/21 16:20 07/20/21 16:20 Labs: Lab Results 07/20/21 07/20/21 Range/Units 16:20 16:20 WBC 11.4 H (4.5-11.0) X10^3/uL RBC 5.30 (4.5-5.9) X10^6/uL Hgb 16.1 (13.5-17.5) g/dL Hct 46.8 (41-53) % MCV 88.3 (80-100) fL MCH 30.4 (26-34) PG MCHC 34.4 (30-36) % RDW 13.1 (11.6-14.8) % Plt Count 220 (150-400) X10^3/uL Neut % (Auto) 70.0 (50-75) % Lymph % (Auto) 12.7 L (25-40) % [place] % (Auto) 13.6 (3-14) % Eos % (Auto) 2.8 (2-4) % Baso % (Auto) 0.9 (0-2) % Neut # (Auto) 8000 H (3699-0795) /uL Lymph # (Auto) 1500 (7217-8349) /uL [place] # (Auto) 1600 H (0-900) /uL Eos # (Auto) 300 (0-450) /uL Baso # (Auto) 100 (0-100) /uL Sodium 138 (137-145) mmol/L Potassium 3.7 (3.4-5.1) mmol/L Chloride 100 (98-107) mmol/L Carbon Dioxide 28 (22-32) mmol/L BUN 15 (9-20) mg/dL Creatinine 0.86 (0.66-1.25) mg/dL Estimated GFR > 60.0 (>60) mL/min BUN/Creatinine Ratio 17.4 (6-22) Glucose 142 H (70-100) mg/dL Calcium 9.6 (8.4-10.2) mg/dL Total Bilirubin 1.2 (0.2-1.3) mg/dL AST 44 (17-59) IU/L ALT 46 (<50) IU/L Alkaline Phosphatase 69 (38-126) U/L Total Protein 8.4 H (6.3-8.2) g/dL Albumin 4.7 (3.5-5.0) g/dL Globulin 3.7 (1.7-4.1) g/dL Albumin/Globulin Ratio 1.3 (1.0-2.8) Lipase 75 (23-300) U/L Point of care testing: Urine Dip Bedside Urine Glucose 1000 mg/dl Bedside Urine Bilirubin - Negative Bedside Urine Ketone +/- 5 Urine Specific [place] 1.020 Bedside Urine Occult Blood - Negative Bedside Urine pH 6.0 Bedside Urine Protein - Negative Bedside Urine Urobilinogen - Negative Bedside Urine Nitrite - Negative Bedside Urine Leukocytes - Negative Esterase Imaging Data CT scan - abdomen/pelvis: Radiologist's Impression: [address] [place] [id number] Scan Report Signed Patient: Drew Correa MR#: [id number] : 1970 Acct:[id number] Age/Sex: 51 / M Date of Service: 07/20/21 Loc: ED Accession Number: [id number] ?? Procedure: CT abdomen pelvis w con Ordering Provider: Paulina Montero- PROCEDURE:? CT ABDOMEN PELVIS W CON ? INDICATIONS:? abd pain, hx divert with perf ? TECHNIQUE:? After the administration of intravenous contrast, axial sections acquired from the lung bases to the pubic symphysis.? Coronal and sagittal reformats were performed.? For radiation dose reduction, the following was used:? automated exposure control, adjustment of mA and/or kV according to patient size.? ? COMPARISON:? [facility], CT, ABDOMEN/PELVIS WITH CONTRAST, 05/21/2013, 7:33. ? FINDINGS:? ? Innumerable sigmoid and distal colonic diverticula present.? Proximal sigmoid colonic wall thickening with adjacent fat stranding and engorged Vasa recta.? No free air or free fluid. ? Remainder of the bowel is normal.? Appendix unremarkable.? Mild hepatomegaly and diffuse moderate hepatic steatosis.? Remaining solid abdominal visceral structures are within normal limits.? No threshold enlarged intra-abdominal, retroperitoneal, pelvic, or inguinal lymph node.? Urinary bladder in prostate are unremarkable.? Nonaneurysmal abdominal aorta.? There is a 3 millimeter nodule in the right lower lobe on series 2, image 5 which is unchanged from 2013 exam. ? IMPRESSION:? ? Acute sigmoid diverticulitis without evidence of perforation, adjacent abscess, or other complicating feature. ? ? Dictated by: Juancarlos Robledo M.D. on 07/20/2021 at 17:30 ? ? Approved by: Juancarlos Robledo M.D. on 07/20/2021 at 17:33?? MDM Narrative Medical decision making narrative: The patient is a 51-year-old male who presents with a chief complaint of abdominal pain. He has not started is Augmentin as prescribed by his primary care provider though he did do 1 day of amoxicillin for diverticulitis. However he does have history perforation, so I did get a CT which shows no acute findings other than diverticulitis with no per, no abscess etcetera. I discussed at length with the patient that given his allergies and history of C diff his primary care provider has prescribed exactly what I would give him. I did given pain and nausea medicine. I did discussed the incidental finding of a pulmonary nodule with the patient, and discussed that it small in stable size is very reassuring. I encouraged him to follow up with primary care provider regarding this. Discussed at length rest of bowel, starting with clear liquid diet slowly advancing etcetera. Discussed ER return precautions of inability keep down fluids etcetera. <Ish Reilly, - Last Filed: 07/20/21 23:16> Lab Data Labs: Lab Results 07/20/21 07/20/21 Range/Units 16:20 16:20 WBC 11.4 H (4.5-11.0) X10^3/uL RBC 5.30 (4.5-5.9) X10^6/uL Hgb 16.1 (13.5-17.5) g/dL Hct 46.8 (41-53) % MCV 88.3 (80-100) fL MCH 30.4 (26-34) PG MCHC 34.4 (30-36) % RDW 13.1 (11.6-14.8) % Plt Count 220 (150-400) X10^3/uL Neut % (Auto) 70.0 (50-75) % Lymph % (Auto) 12.7 L (25-40) % [place] % (Auto) 13.6 (3-14) % Eos % (Auto) 2.8 (2-4) % Baso % (Auto) 0.9 (0-2) % Neut # (Auto) 8000 H (4295-6951) /uL Lymph # (Auto) 1500 (6868-2985) /uL [place] # (Auto) 1600 H (0-900) /uL Eos # (Auto) 300 (0-450) /uL Baso # (Auto) 100 (0-100) /uL Sodium 138 (137-145) mmol/L Potassium 3.7 (3.4-5.1) mmol/L Chloride 100 (98-107) mmol/L Carbon Dioxide 28 (22-32) mmol/L BUN 15 (9-20) mg/dL Creatinine 0.86 (0.66-1.25) mg/dL Estimated GFR > 60.0 (>60) mL/min BUN/Creatinine Ratio 17.4 (6-22) Glucose 142 H (70-100) mg/dL Calcium 9.6 (8.4-10.2) mg/dL Total Bilirubin 1.2 (0.2-1.3) mg/dL AST 44 (17-59) IU/L ALT 46 (<50) IU/L Alkaline Phosphatase 69 (38-126) U/L Total Protein 8.4 H (6.3-8.2) g/dL Albumin 4.7 (3.5-5.0) g/dL Globulin 3.7 (1.7-4.1) g/dL Albumin/Globulin Ratio 1.3 (1.0-2.8) Lipase 75 (23-300) U/L Point of care testing: Urine Dip Bedside Urine Glucose 1000 mg/dl Bedside Urine Bilirubin - Negative Bedside Urine Ketone +/- 5 Urine Specific [place] 1.020 Bedside Urine Occult Blood - Negative Bedside Urine pH 6.0 Bedside Urine Protein - Negative Bedside Urine Urobilinogen - Negative Bedside Urine Nitrite - Negative Bedside Urine Leukocytes - Negative Esterase Discharge Plan Departure Patient Disposition: Home Clinical Impression: Diverticulitis of sigmoid colon, Lung nodule Instructions: DI for Diverticulitis, DI for Abdominal Pain-Adult, DI for Pulmonary Nodule Activity Restrictions/Additional Instructions: Thank you for trusting us with your care today. As discussed, your lab work returned reassuringly. Your CT shows acute sigmoid diverticulitis without evidence of perforation abscess or other complicating feature. Thus I would take the antibiotics given to by your primary care provider. They are exactly would I would give you. I did send prescriptions for pain and nausea to [facility]. I have given you a prescription of a narcotic for pain. Be aware that this can be constipating and sedating. I encouraged taking with a stool softener, pushing fluids and fiber. Do not take and drive, operate heavy machinery, etc. Do not combine it with any other sedating substances such as alcohol. The combination of narcotics and alcohol and/or other sedatives can be lethal. Please follow-up with primary care provider in the next few days. As discussed, please eat a very simple diet and slowly advanced. Start with clear liquids such as those listed including Jell-O, broth soups etcetera. Slowly advance to basic foods like bland toast, chicken noodle soup etcetera Please monitor for acute concerns such as inability keep down fluids, severe sudden worsening of abdominal pain etcetera. Please come back to the emergency department for any acute concerns. Of note, the CT scan does show evidence of a 3 mm nodule in the right lower lobe of the lung. This is a lung or pulmonary nodule. I have included information about pulmonary nodules in her discharge. Please follow-up with your primary care provider regarding this. It is important to note that most pulmonary nodules are not cancerous. The radiologist to read your CT today states that this nodule is unchanged since 2013. Research shows that less than 1% of nodules less than 5 mm are malignant. Additionally, stable size is also considered very reassuring. Often times nodules that are stable size by CT for at least do not need any further diagnostic evaluation. However please follow-up with primary care provider regarding this incidental finding. Prescriptions: New hydrocodone-acetaminophen 5-325 mg tablet 1 tab PO Q4-6H PRN (Reason: pain) Qty: 10 0RF ondansetron 4 mg tablet,disintegrating 4 mg PO Q6H PRN (Reason: nausea and vomiting) Qty: 20 0RF No Action tramadol 50 mg tablet 50 mg PO BID PRN (Reason: pain) Qty: 14 0RF methocarbamol 750 mg tablet 750 mg PO Q8H PRN (Reason: muscle spasm) Qty: 30 0RF amoxicillin-pot clavulanate [Augmentin] 875-125 mg tablet 1 tab PO TID Qty: 30 0RF metformin 1,000 mg tablet extended release 24hr 1,000 mg PO BID Qty: 180 3RF Rx Instructions: Did not tolerated short-acting due to GI upset (DME) blood-glucose meter [Blood Glucose Monitoring] Kit See Rx Instructions .Route Qty: 1 0RF Rx Instructions: Use with lancets and test strips to test blood sugars once daily (DME) lancets 23 gauge misc See Rx Instructions .Route Qty: 100 1RF Rx Instructions: Use once daily with glucose meter (DME) pen needles See Rx Instructions .Route .MEDSUPPLY Qty: 100 1RF Rx Instructions: Use to inject insulin once daily atorvastatin 40 mg tablet 40 mg PO BEDTIME Qty: 90 3RF Lantus Solostar U-100 Insulin 100 unit/mL (3 mL) insulin pen 15 unit SUBCUT QPM Qty: 15 3RF Rx Instructions: did not tolerate NPH. (DME) True Metrix Glucose Test Strip Strip See Rx Instructions .Route Qty: 100 3RF Rx Instructions: For testing blood sugar 2 x daily losartan-hydrochlorothiazide 100-25 mg tablet 1 tab PO DAILY Qty: 90 3RF Jardiance 10 mg tablet 10 mg PO DAILY Qty: 7 0RF Jardiance 25 mg tablet 25 mg PO DAILY Qty: 90 2RF Rx Instructions: Begin after finishing 10 mg jardiance dosage. amlodipine 5 mg Tablet 5 mg PO 0RF Referrals: Cresencio Baltazar MD [Primary Care Provider] - <Ish Reilly DO - Last Filed: 07/20/21 23:16> Cosign ED Attending Cosignature Attestation: Dr Reilly Co-Sign Statement: I was available for consultation during this patient's emergency department visit. This chart is signed by myself for administrative purposes only. I did not have direct contact with this patient during this visit. They were seen independently by the APC.
[2021-07-20 18:31] VITALS: BP 123/65; PULSE 90; RESP 18; O2SAT 96
[2021-07-20 19:00] VITALS: PULSE 87; RESP 17; O2SAT 95
[2021-07-20 19:01] VITALS: BP 128/79; PULSE 86; RESP 24; O2SAT 95
== END 2021-07-20 19:44 | disposition home or self-care (01) ==
PROVIDERS: Emergency Medicine; Emergency Provider Nurse Practitioner Family; Family Provider Family Medicine; PCP Family Medicine
DX: K57.32 Diverticulitis of large intestine without perforation or abscess without bleeding (principal); I10 Essential (primary) hypertension; Z87.891 Personal history of nicotine dependence
CPT/HCPCS: 36415; 74177; 80053; 81003; 83690; 85025; 93005; 93010; 96360; 99284; Q9967

== ENCOUNTER → 2021-08-17 13:51 | Outpatient (CLI) | payer OTHER, MEDICAID, SELFPAY ==
--- NOTE | 2021-08-17 17:11 | DIAB.FU ---
Follow-up Diabetes Education Assessment Name: Drew Correa (Bobby) Date: 08/17/21 Time: 2-3p Dx: Type II Diabetes Bobby presents today for T2DM follow-up. Has questions today regarding getting HgA1c down to 7% or less for ENT sx as well as diverticulitis MNT. h/o diverticulitis and colectomy. No symptoms currently. Just finished Abx. Brought in BG meter and BP cuff today. BP in clinic with home cuff was 163/100 (left) and 149/100 (right). Waiting for BP medications because pharmacy is out of amlodipine. Encouraged him to contact his provider today to discuss current BP. Recovered from covid+ status when on vacation in [place]. At that time had difficulty with meal prep since he did not have access to kitchen or many groceries. States consistent intake has been better lately and taking snacks to work prn. Not currently checking FBG. Often checks BG right after eating breakfast. BG seem to be trending down. Has titrated insulin up to 30u daily. Cont taking Jardiance and Metformin. PCP has rx?d ER Metformin, but insurance is req a prior auth. Physical Activity: Going to the gym daily for 60 min or more. Self-Monitoring Blood Glucose: Evening readings are elevated. No FBG to evaluate. 7 day av 14 day av 30 day av Non fasting morning reading (immediately after eating): 146, 158, 150, 191, 140 Evening reading (unclear of relationship to dinner time): 219, 266 Diabetes Medications: 30u Lantus Metformin 1000 mg BID Empagliflozin 25 mg daily Pertinent Labs: HgA1c 9.4% (04/2021), 8.8% (07/08/21) Past Medical History: (Last Reviewed 07/20/21 @ 18:13 by BRANDT Beckham-) Abdominal pain Allergic rhinitis Chronic low back pain Diabetes mellitus type 2 in obese History of diverticulitis (06/16/15) Hyperlipidemia associated with type 2 diabetes mellitus Hypertension Intranasal synechiae Nasal septal deviation MITCHELL treated with BiPAP Status post laparoscopic colectomy Intervention: This participant was very receptive. Provided appropriate educational handouts. Discussed the following topics: Recent blood sugar results and trends Medication management, potential for titration pending FBG Importance of FBG Answered questions about diverticulitis vs diverticulosis Provided fiber handout Discussed BP goals and potential for online pharmacy for more supply Importance of contacting provider about BP Goals for BG for HgA1c of 7% Created SMART goals for patient self-care and success. Goals: Keep balanced snack in car- met Track food intake until next visit- not met Take Metformin with food- met Consider online pharmacy to get amlodipine- new Check FBG daily - new Inc Lantus per OP insulin protocol- new Ask provider about BP (when to call or go to ER)- new Discuss goal of 7% A1c and med adjustments for goal- new Follow-up: ROHIT PAYTON follow-up in 3-4 weeks. Bobby is very motivated and making great changes. His BG seems to cont above goal. He can cont to increase Lantus until FBG <130 in order to meet HgA1c goals for ENT and overall good DM mgmgnt. If Lantus is 0.5u/kg or more, which is not anticipated to meet goal, may then need additional DM med. Bobby will see Dr. Baltazar this for follow-up. Marbella Whitman RDN, [facility] Certified Diabetes Care and Program Trainer P: [phone] Thank you for this referral
== END ==
PROVIDERS: Family Provider Family Medicine; PCP Family Medicine; Referring Provider Family Medicine; Visit Provider Family Medicine
DX: E11.9 Type 2 diabetes mellitus without complications (principal); Z79.4 Long term (current) use of insulin; Z79.84 Long term (current) use of oral hypoglycemic drugs; Z71.3 Dietary counseling and surveillance; Z87.19 Personal history of other diseases of the digestive system
CPT/HCPCS: G0108

== ENCOUNTER → 2021-09-14 12:53 | Outpatient (CLI) | payer OTHER, MEDICAID, SELFPAY ==
--- NOTE | 2021-09-16 15:37 | DIAB.FU ---
Addendum entered by Marbella Whitman 09/16/21 15:56: Discussed basing insulin off FBG and not evening meal. pt verbalized understanding. Briefly discussed potential for food or stress impact on GI Reviewed Dm burnout and impact on mental health Original Note: Follow-up Diabetes Education Assessment Name: Drew Correa (Bobby) Date: 09/14/21 Time: 1-2p Dx: Type II Diabetes Bobby presents today for Dm follow-up. Blood sugars continue to be elevated. He is feeling discouraged, though is historically cautious about increasing Lantus to improve FBG. States he has been determining his Lantus dose based on evening meal, increasing to 36u when eating large carb meal and down to 34u with lower carb. We have discussed evening Lantus titration based on FBG. Provider has rx'd Metformin XR due to GI upset. Bobby reports he has not switched due to avoiding wasting Metformin. When asked why, he states that he was under the impression that Metformin is an expensive medication. Diverticulitis flare ups monthly. Has not discussed recently with PCP or a GI specialist. May have some food sensitivities and/or stress impacting GI. States he has cut down on red meat and eating more veg at dinner. Sometimes skips carbs at meals. Recent skin tag removal States he finds DM to be very frustrating because BG improved drastically when first adding medications and now feels stuck. Cont to strive for HgA1c of 7 to have ENT procedure. Has discussed and resolved issues with Bp meds with pharmacy. Cannot remember what his provider told him about when to contact about hypertensive emergencies. Physical Activity: 60 min gym 3-4 days per week Self-Monitoring Blood Glucose: All FBG above target. Might benefit from adjustment to Dm medications. Date Pre Post Pre Post Pre Post HS 09/01 226 09/06 144 09/07 189 09/08 173 33 170 37 153 09/14 188 Diabetes Medications: 34-36u Lantus Metformin 1000 mg BID Empagliflozin 25 mg daily Pertinent Labs: HgA1c 8.8% (07/08/21), 9.4% (04/2021) Past Medical History: (Last Reviewed 07/20/21 @ 18:13 by Paulina Montero, GRAIN ELEVATOR MOTOR STARTER-) Abdominal pain Allergic rhinitis Chronic low back pain Diabetes mellitus type 2 in obese History of diverticulitis (06/16/15) Hyperlipidemia associated with type 2 diabetes mellitus Hypertension Intranasal synechiae Nasal septal deviation MITCHELL treated with BiPAP Status post laparoscopic colectomy Intervention: This participant was very receptive. Provided appropriate educational handouts. Discussed the following topics: Recent blood sugar results and trends Medication management and potential for titration due to hyperglycemia Impact of intake on BG Physical activity plan and impact on blood sugars Hypertensive emergency vs hypertensive urgency per AHA guidelines. Encouraged him to discuss more details with PCP. Created SMART goals for patient self-care and success. Goals: Consider online pharmacy to get amlodipine- d/c Check FBG daily - met Inc Lantus per OP insulin protocol- not met Ask provider about BP (when to call or go to ER)- in progress Titrate Lantus per OP guidelines until FBG in range (RD to contact provider about this)- new Discuss hypertensive emergency threshold with provider for a plan- new Follow-up: ROHIT PAYTON follow-up in 2-[address] will message provider regarding BG and contact pt with additional info prn. Plan to discuss nutrition more next visit. Marbella Whitman, ROHIT, [facility] Certified Diabetes Care and Wool Washer P: [phone] Thank you for this referral
== END ==
PROVIDERS: Family Provider Family Medicine; PCP Family Medicine; Referring Provider Family Medicine; Visit Provider Family Medicine
DX: E11.9 Type 2 diabetes mellitus without complications (principal)
CPT/HCPCS: G0108

== ENCOUNTER → 2021-10-11 09:25 | Outpatient (CLI) | payer OTHER, MEDICAID, SELFPAY ==
[2021-10-11 10:40] LABS: Add Manual Diff / Slide Review NO; Basophils Absolute Auto 100 /uL (0-100); Basophils Percent Auto 1.1 % (0-2); Eosinophils Absolute Auto 400 /uL (0-450); Eosinophils Percent Auto 5.4 % (2-4); Hematocrit 47.1 % (41-53); Hemoglobin 16.2 g/dL (13.5-17.5); Lymphocytes Absolute Auto 2200 /uL (1100-4500); Lymphocytes Percent Auto 30.2 % (25-40); Mean Corpuscular HGB Conc 34.3 % (30-36); Mean Corpuscular Hemoglobin 30.1 PG (26-34); Mean Corpuscular Volume 87.8 fL (80-100); Monocytes Absolute Auto 700 /uL (0-900); Monocytes Percent Auto 9.1 % (3-14); Neutrophils Absolute Auto 4000 /uL (1500-7000); Neutrophils Percent Auto 54.2 % (50-75); Platelet Count 204 X10^3/uL (150-400); Red Blood Cell Count 5.37 X10^6/uL (4.5-5.9); Red Cell Distribution Width 13.5 % (11.6-14.8); White Blood Cell Count 7.4 X10^3/uL (4.5-11.0)
[2021-10-11 11:05] LABS: Appearance Urine UA CLEAR; Bilirubin Urine UA NEGATIVE (NEGATIVE); Color Urine UA YELLOW; Glucose Urine UA 2+ g/dL (Negative); Ketones Urine UA NEGATIVE (NEGATIVE); Leukocyte Esterase Urine UA NEGATIVE (NEGATIVE); Nitrite Urine UA NEGATIVE (Negative); Occult Blood Urine UA TRACE-LYSED (Negative); Protein Urine UA NEGATIVE (Negative); Urobilinogen Urine UA 0.2 E.U./dL (0.2)
[2021-10-11 11:17] LABS: Alanine Aminotransferase 68 IU/L (<50); Albumin 4.5 g/dL (3.5-5.0); Albumin Globulin Ratio 1.4 (1.0-2.8); Alkaline Phosphatase 64 U/L (38-126); Aspartate Aminotransferase 59 IU/L (17-59); BUN Creatinine Ratio 17.2 (6-22); Bilirubin Total 0.6 mg/dL (0.2-1.3); Blood Urea Nitrogen 15 mg/dL (9-20); Calcium 9.8 mg/dL (8.4-10.2); Carbon Dioxide 27 mmol/L (22-32); Chloride 102 mmol/L (98-107); Estimated Glomerular Filt Rate > 60.0 mL/min (>60); Globulin 3.3 g/dL (1.7-4.1); Glucose 151 mg/dL (70-100); HEMOLYSIS < 15 (0-50); Lipase 337 U/L (23-300); Sodium 141 mmol/L (137-145); Total Protein 7.8 g/dL (6.3-8.2)
[2021-10-11 11:27] LABS: Amorphous Sediment Urine 2+; Bacteria Urine None Seen; Culture Indicated Urine Cult Not Indicated; RBC Urine 0-1/HPF (0-5/HPF); WBC Urine None Seen (0-5/HPF)
[2021-10-14 11:33] LABS: Hemoglobin A1C% w Est Avg Glu 8.3 % (4.0-6.0)
== END ==
PROVIDERS: Family Provider Family Medicine; PCP Family Medicine; Referring Provider Family Medicine; Visit Provider Family Medicine
DX: R10.9 Unspecified abdominal pain (principal); E11.69 Type 2 diabetes mellitus with other specified complication; E78.5 Hyperlipidemia, unspecified; Z87.19 Personal history of other diseases of the digestive system
CPT/HCPCS: 36415; 80053; 81001; 83036; 83690; 85025

== ENCOUNTER → 2021-10-29 10:50 | Outpatient (CLI) | payer OTHER, MEDICAID, SELFPAY ==
--- NOTE | 2021-10-29 10:51 | DI.MRI.S_ITS ---
PROCEDURE: MR LUMBAR SPINE WO CON INDICATIONS: eval back pain TECHNIQUE: Noncontrast sagittal T1 spin echo and T2 fast echo, sagittal STIR, and T2 fast spin echo through the lumbar spine. In cases with scoliosis, additional coronal T2 fast spin echo may be performed. COMPARISON: [facility], CR, XR LUMBAR SPINE 2-3V, 03/12/2021, 13:39. FINDINGS: Image quality: Excellent. Alignment and Curvature: There is normal bony alignment. Bone Marrow: Marrow is of normal overall signal. No acute vertebral body compression fractures. Spinal Cord: Conus medullaris terminates at the L2 level. Visualized cord demonstrates normal signal and size. Paraspinous Soft Tissues: No paravertebral masses. T12-L1: No canal stenosis or foraminal stenosis. L1-L2: Mild facet hypertrophy. No canal stenosis or foraminal stenosis. L2-L3: Mild facet hypertrophy. No canal stenosis or foraminal stenosis. L3-L4: Mild facet hypertrophy. No canal stenosis. Pvhd-yx-gvvfupyp bilateral foraminal narrowing. L4-L5: Mild disc bulge. Facet hypertrophy. No canal stenosis. Nmou-ul-uqqekjnf bilateral foraminal narrowing. L5-S1: Mild disc bulge. Facet hypertrophy. Mild bilateral foraminal narrowing. IMPRESSION: 1. Multilevel facet arthropathy. 2. No canal stenosis. 3. Fogu-sc-nbbencco foraminal narrowing at L3-L4 and L4-L5. Dictated by: Berlin Smiley M.D. on 10/29/2021 at 12:04 Approved by: Berlin Smiley M.D. on 10/29/2021 at 12:08
== END ==
PROVIDERS: Family Provider Family Medicine; PCP Family Medicine; Referring Provider Family Medicine; Visit Provider Family Medicine
DX: M47.816 Spondylosis without myelopathy or radiculopathy, lumbar region (principal); M47.817 Spondylosis without myelopathy or radiculopathy, lumbosacral region; M48.061 Spinal stenosis, lumbar region without neurogenic claudication; M54.50 Low back pain, unspecified; G89.29 Other chronic pain
CPT/HCPCS: 72148

== ENCOUNTER 2022-01-27 09:45 | Outpatient (RCR) | payer OTHER, MEDICAID, SELFPAY ==
--- NOTE | 2021-12-29 17:45 | PT.OIE ---
Current Diagnoses Other chronic pain (12/29/21) Low back pain, unspecified (12/29/21) Dorsalgia, unspecified (12/29/21) Past Medical History (Last Reviewed 07/20/21 @ 18:13 by [facility] Abdominal pain Allergic rhinitis Chronic low back pain Diabetes mellitus type 2 in obese History of diverticulitis (06/16/15) Hyperlipidemia associated with type 2 diabetes mellitus Hypertension Intranasal synechiae Nasal septal deviation MITCHELL treated with BiPAP Past Surgical History (Last Updated 05/17/21 @ 10:55 by Bree Crowley RN) Status post laparoscopic colectomy Visit Care Team Role Provider Type Cresencio Baltazar MD Attending Provider Physician Family Provider Primary Care Provider Referring Provider Specialty: [facility] Address: [address] [place] [address], [facility] Email: [email or web address] Physical Therapy Initial Evaluation PT-OP-A Visit Information Start: 12/27/21 17:20 Freq: Status: Active Protocol: Document 12/29/21 10:30 AW (Rec: 12/27/21 17:25 AW [id number]) Out-Patient Physical Therapy Visit Information Visit Information Visit Type Initial Evaluation Visit Start Time 09:45 Visit Stop Time 10:30 Total Visit Minutes 45 Visit Number 1 Number of MISSILE TRACKING TECHNICIAN Visits 0 Evaluation Information Evaluation Date 12/29/21 PT-OP-B Current Condition Start: 12/27/21 17:20 Freq: Status: Active Protocol: Document 12/29/21 10:30 AW (Rec: 12/27/21 17:25 AW [id number]) Current Condition History of Current Condition Onset Date one year Current Complaints back pain - low and mid-back; left fibula fracture, left ankle sprain History of Current Condition Bobby has had low back pain for 25+ years. He reports it is stable and he is less concerned about the low back. Last year, he tripped on some roots and had left calf pain, walked funny and started to have mid-back pain more on the right side. He went to PT and had some relief. He started taking 15 mg meloxicam daily after PT recommended and physician agreed. This medication has been helpful. He has good days and bad. If pain is bad, it's hard to walk his dogs or take his kids to school. It is otherwise manageable. Massage helps. He has 6 and 10 yo children who are more than happy to push on his back with their feet. Heat helps. Bobby saw ortho last week who interpreted MRI and did not see anything concerning along the thoracic spine. 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 He has diabetes which is well controlled. Prior Treatments and Tests MRI L/S 10/29/21: Multi-level facet arthropathy. L3-L4: Mild facet hypertrophy. No canal stenosis. Qnhe-kf-ktaqvhai bilateral foraminal narrowing. L4-L5: Mild disc bulge. Facet hypertrophy. No canal stenosis. Mbcf-pj-oleikuhe bilateral foraminal narrowing. L5-S1: Mild disc bulge. Facet hypertrophy. Mild bilateral foraminal narrowing. PT-OP-C Subjective Start: 12/27/21 17:20 Freq: Status: Active Protocol: Document 12/29/21 10:30 AW (Rec: 12/30/21 14:17 AW [id number]) Patient Questionnaires Oswestry Low Back Index Oswestry Score 22 Oswestry Impairment 20 to 39% Impaired (Score 20- 39) OP-PT Pain Assessment Pain Assessment Grid Paper Pain Assessment Grid Completed Yes: Scanned to EMR PT-OP-F Manual Assessment Start: 12/27/21 17:20 Freq: Status: Active Protocol: Document 12/29/21 10:30 AW (Rec: 12/30/21 14:17 AW [id number]) Manual Assessments Soft Tissue Assessment Soft Tissue Mobility Assessment Hyperdense upper traps and rhomboids. Tender to moderate and deep palpation along R paraspinals T8-T11. PT-OP-J Posture/Palpation/Skin Start: 12/27/21 17:20 Freq: Status: Active Protocol: Document 12/29/21 10:30 AW (Rec: 12/30/21 14:17 AW [id number]) Posture Evaluation Comments Posture Comments Pt sits and stands with B shoulders elevated and slightly forward. Head is vaguely forward. Slight anterior pelvic tilt. PT-OP-K Range of Motion Start: 12/27/21 17:20 Freq: Status: Active Protocol: Document 12/29/21 10:30 AW (Rec: 12/30/21 14:17 AW [id number]) Cervical Spine Range of Motion Cervical Spine Active Testing Position Sitting Flexion 25 Extension 45 Rotation Left 75 Rotation Right 75 Lateral Flexion Left 35 Lateral Flexion Right 30 Comments No pain reproduction with any cervical movements. Lumbar Spine Range of Motion Lumbar Spine Active Comments Qualitatively, lumbar flexion is limited with hips fixed. Lumbar spine is relatively flat and extension is also limited. R rotation does reproduce pain along thoracic spine. Hip Goniometric Range of Motion Hip bilat Comments IR limited bilaterally. HS length assessed with SLR with hip flexion to 65 degrees bilaterally. No pain reproduction with AROM, PROM, or overpressure. Hip ROM Limitations Hip ROM Limitations Soft Tissue Tightness PT-OP-L Special Tests Start: 12/27/21 17:20 Freq: Status: Active Protocol: Document 12/29/21 10:30 AW (Rec: 12/30/21 14:22 AW [id number]) Special Tests Cervical Spine Special Tests Spurling's Test Test Results negative Lumbar Spine Special Tests Other- 1 Test Results extension + R rotation quadrant - positive PT-OP-M Strength Start: 12/27/21 17:20 Freq: Status: Active Protocol: Document 12/29/21 10:30 AW (Rec: 12/30/21 14:22 AW [id number]) Cervical Spine Strength Cervical Spine Manual Muscle Testing Testing Position Sitting Flexion (C1-2) 5 Normal Extension 5 Normal Rotation Left 5 Normal Rotation Right 5 Normal Lateral Flexion Left (C3) 5 Normal Lateral Flexion Right (C3) 5 Normal Trunk Strength Trunk Manual Muscle Testing Comments Poor ability to isolate or contract transverse abdominus Scapula Strength Scapula Manual Muscle Testing Right Elevation (C4) 5 Normal Adduction 4 Good Depression 4 Good Comments Pain reproduced with resisted adduction and depression Shoulder Strength Shoulder Manual Muscle Testing bilat Flexion 5 Normal Extension 5 Normal Abduction (C5) 5 Normal External Rotation 4+ Good+ Internal Rotation 5 Normal Hip Strength Hip Manual Muscle Testing bilat Flexion (L2) 5 Normal Extension (S1) 4+ Good+ Abduction 4+ Good+ PT-OP-Q Treatments Start: 12/27/21 17:20 Freq: Status: Active Protocol: Document 12/29/21 10:30 AW (Rec: 12/30/21 14:25 AW [id number]) Therapeutic Exercises Supine Exercises diaphragmatic breathing Supine Exercise Name diaphragmatic breathing Equipment Used hand on chest, hand on abdomen Comments HEP snow angels Supine Exercise Name snow angels Side bilateral Equipment Used half foam roll; rolled blanket for home Comments HEP Sitting Exercises trunk rotation Sitting Exercise Name trunk rotation Side bilateral Resistance gentle AROM Comments HEP with concern for pain free range Self-Care/Home Management Treatment Education Patient Education Home Exercise Program PT-OP-T Assessment and Plan Start: 12/27/21 17:20 Freq: Status: Active Protocol: Document 12/29/21 10:30 AW (Rec: 12/30/21 17:30 AW [id number]) Physical Therapy Assessment Rehab Potential Rehabilitation Potential Good Evaluation Complexity Number of Personal Factors/Comorbidities 1-2 Number of Body Systems Impaired 1-2 Clinical Presentation at Evaluation Stable Impairments Impairments Pain,Posture Goals Three Impairment work limitations Mcc Goal (LTG) Pt will be able to lift cast iron or other heavy skillets without increase in baseline pain LTG Duration 03/09/22 Two Impairment back pain Short Term Goal (STG) Pt will report back pain 4/10 or less for one week STG Duration 02/02/22 Heel Seat Fitter Machine Goal (LTG) Pt will report back pain 2/10 or less for one week LTG Duration 03/09/22 One Impairment lacks HEP Impairment Pt will be instructed in HEP for pain mangement, thoracic mobility, and reduction in paraspinal tone. STG Duration 02/02/22 Heel Seat Fitter Machine Goal (LTG) Pt will be independent with HEP to better manage his pain symptoms. LTG Duration 03/09/22 Assessment Summary Assessment Bobby is a 51 yo man who attends outpatient physical therapy with complaint of mid- back pain which limits his function at work and interferes with daily activities. He has excessive tone in upper trapezius and rhomboids bilaterally, thoracic paraspinals on the right. He has poor core stability and poor scapular control. He would benefit from skilled therapy to improve his thoracic mobility, scapular strength, and core strength to manage his current pain symptoms and reduce likelihood of recurrence. Physical Therapy Plan Frequency and Duration Frequency of Treatment 1-2x/week Duration of Treatment 10 weeks Plan of Care Start Date 12/29/21 Plan of Care End Date 03/09/22 Therapeutic Interventions Therapeutic Interventions Balance Training,Gait Training ,Home Exercise Program,Manual Therapy,Neuromuscular Re- education,Self-Care/Home Management,Soft Tissue Mobilization,Taping, Therapeutic Activities, Therapeutic Exercises Next Visit Focus/Plan Next Note Type Treatment Note Next Visit Plan Assess response to initial HEP . Initiate core stab training in supine. Assess single leg stance, gait, rib mobility and breathing mechanics.
--- NOTE | 2021-12-29 17:47 | PT.OPPOC ---
Physical, Occupational & Speech Therapy At [facility] Current Diagnoses Other chronic pain (12/29/21) Low back pain, unspecified (12/29/21) Dorsalgia, unspecified (12/29/21) Visit Care Team Role Provider Type Cresencio Baltazar MD Attending Provider Physician Family Provider Primary Care Provider Referring Provider Specialty: Family Practice Address: [address] [place] [address], [facility] Email: [email or web address] Plan Of Care PT-OP-T Assessment and Plan Start: 12/27/21 17:20 Freq: Status: Active Protocol: Document 12/29/21 10:30 AW (Rec: 12/30/21 17:30 AW [id number]) Physical Therapy Assessment Rehab Potential Rehabilitation Potential Good Evaluation Complexity Number of Personal Factors/Comorbidities 1-2 Number of Body Systems Impaired 1-2 Clinical Presentation at Evaluation Stable Impairments Impairments Pain,Posture Goals Three Impairment work limitations Jail Goal (LTG) Pt will be able to lift cast iron or other heavy skillets without increase in baseline pain LTG Duration 03/09/22 Two Impairment back pain Short Term Goal (STG) Pt will report back pain 4/10 or less for one week STG Duration 02/02/22 Jail Goal (LTG) Pt will report back pain 2/10 or less for one week LTG Duration 03/09/22 One Impairment lacks HEP Impairment Pt will be instructed in HEP for pain mangement, thoracic mobility, and reduction in paraspinal tone. STG Duration 02/02/22 Jail Goal (LTG) Pt will be independent with HEP to better manage his pain symptoms. LTG Duration 03/09/22 Assessment Summary Assessment Bobby is a 51 yo man who attends outpatient physical therapy with complaint of mid- back pain which limits his function at work and interferes with daily activities. He has excessive tone in upper trapezius and rhomboids bilaterally, thoracic paraspinals on the right. He has poor core stability and poor scapular control. He would benefit from skilled therapy to improve his thoracic mobility, scapular strength, and core strength to manage his current pain symptoms and reduce likelihood of recurrence. Physical Therapy Plan Frequency and Duration Frequency of Treatment 1-2x/week Duration of Treatment 10 weeks Plan of Care Start Date 12/29/21 Plan of Care End Date 03/09/22 Therapeutic Interventions Therapeutic Interventions Balance Training,Gait Training ,Home Exercise Program,Manual Therapy,Neuromuscular Re- education,Self-Care/Home Management,Soft Tissue Mobilization,Taping, Therapeutic Activities, Therapeutic Exercises Next Visit Focus/Plan Next Note Type Treatment Note Next Visit Plan Assess response to initial HEP . Initiate core stab training in supine. Assess single leg stance, gait, rib mobility and breathing mechanics. Plan of Care Dates Plan of Care Start Date 12/29/21 Plan of Care End Date 03/09/22 Electronically Signed by: Altagracia Sabillon, PT 12/30/21 [id number] If you are in agreement with this Plan of Care, please return a signed and dated copy. I have reviewed this Plan of Care and certify that the skilled therapy services above are required to meet the patient?s needs. Physician Signature Date Printed Name and Credentials Clinical Instructor Signature Printed Name and Credentials
--- NOTE | 2021-12-29 17:48 | PT.OPPOC ---
Physical, Occupational & Speech Therapy At [facility] Current Diagnoses Other chronic pain (12/29/21) Low back pain, unspecified (12/29/21) Dorsalgia, unspecified (12/29/21) Visit Care Team Role Provider Type Cresencio Baltazar MD Attending Provider Physician Family Provider Primary Care Provider Referring Provider Specialty: Family Practice Address: [address] [place] [address], [facility] Email: [email or web address] Plan Of Care PT-OP-T Assessment and Plan Start: 12/27/21 17:20 Freq: Status: Active Protocol: Document 12/29/21 10:30 AW (Rec: 12/30/21 17:30 AW [id number]) Physical Therapy Assessment Rehab Potential Rehabilitation Potential Good Evaluation Complexity Number of Personal Factors/Comorbidities 1-2 Number of Body Systems Impaired 1-2 Clinical Presentation at Evaluation Stable Impairments Impairments Pain,Posture Goals Three Impairment work limitations Longterm Goal (LTG) Pt will be able to lift cast iron or other heavy skillets without increase in baseline pain LTG Duration 03/09/22 Two Impairment back pain Short Term Goal (STG) Pt will report back pain 4/10 or less for one week STG Duration 02/02/22 Longterm Goal (LTG) Pt will report back pain 2/10 or less for one week LTG Duration 03/09/22 One Impairment lacks HEP Impairment Pt will be instructed in HEP for pain mangement, thoracic mobility, and reduction in paraspinal tone. STG Duration 02/02/22 Longterm Goal (LTG) Pt will be independent with HEP to better manage his pain symptoms. LTG Duration 03/09/22 Assessment Summary Assessment Bobby is a 51 yo man who attends outpatient physical therapy with complaint of mid- back pain which limits his function at work and interferes with daily activities. He has excessive tone in upper trapezius and rhomboids bilaterally, thoracic paraspinals on the right. He has poor core stability and poor scapular control. He would benefit from skilled therapy to improve his thoracic mobility, scapular strength, and core strength to manage his current pain symptoms and reduce likelihood of recurrence. Physical Therapy Plan Frequency and Duration Frequency of Treatment 1-2x/week Duration of Treatment 10 weeks Plan of Care Start Date 12/29/21 Plan of Care End Date 03/09/22 Therapeutic Interventions Therapeutic Interventions Balance Training,Gait Training ,Home Exercise Program,Manual Therapy,Neuromuscular Re- education,Self-Care/Home Management,Soft Tissue Mobilization,Taping, Therapeutic Activities, Therapeutic Exercises Next Visit Focus/Plan Next Note Type Treatment Note Next Visit Plan Assess response to initial HEP . Initiate core stab training in supine. Assess single leg stance, gait, rib mobility and breathing mechanics. Plan of Care Dates Plan of Care Start Date 12/29/21 Plan of Care End Date 03/09/22 Electronically Signed by: Altagracia Sabillon, PT 12/30/21 [id number] If you are in agreement with this Plan of Care, please return a signed and dated copy. I have reviewed this Plan of Care and certify that the skilled therapy services above are required to meet the patient?s needs. Physician Signature Date Printed Name and Credentials Clinical Instructor Signature Printed Name and Credentials
--- NOTE | 2022-01-06 14:06 | PT-OP ANOTE ---
Pt's appt cancelled yesterday, PT out sick and rescheduled to today with [facility]ITER [facility]. Pt cancelled today <24 hrs due to not able get out of work.
--- NOTE | 2022-01-18 12:27 | PT.OTN ---
Current Diagnoses Other chronic pain (01/18/22) Low back pain, unspecified (01/18/22) Dorsalgia, unspecified (01/18/22) Physical Therapy Treatment Note PT-OP-A Visit Information Start: 12/27/21 17:20 Freq: Status: Active Protocol: Document 01/18/22 09:49 AW (Rec: 01/18/22 12:27 AW [id number]) Out-Patient Physical Therapy Visit Information Visit Information Visit Type Treatment Note Visit Start Time 09:45 Visit Stop Time 10:30 Total Visit Minutes 45 Visit Number 2 Number of SCHOOL SPEECH THERAPIST Visits 0 Evaluation Information Evaluation Date 12/29/21 PT-OP-B Current Condition Start: 12/27/21 17:20 Freq: Status: Active Protocol: Document 12/29/21 10:30 AW (Rec: 12/27/21 17:25 AW [id number]) Current Condition History of Current Condition Onset Date one year Current Complaints back pain - low and mid-back; left fibula fracture, left ankle sprain History of Current Condition Bobby has had low back pain for 25+ years. He reports it is stable and he is less concerned about the low back. Last year, he tripped on some roots and had left calf pain, walked funny and started to have mid-back pain more on the right side. He went to PT and had some relief. He started taking 15 mg meloxicam daily after PT recommended and physician agreed. This medication has been helpful. He has good days and bad. If pain is bad, it's hard to walk his dogs or take his kids to school. It is otherwise manageable. Massage helps. He has 6 and 10 yo children who are more than happy to push on his back with their feet. Heat helps. Bobby saw ortho last week who interpreted MRI and did not see anything concerning along the thoracic spine. 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 He has diabetes which is well controlled. Prior Treatments and Tests MRI L/S 10/29/21: Multi-level facet arthropathy. L3-L4: Mild facet hypertrophy. No canal stenosis. [id number] bilateral foraminal narrowing. L4-L5: Mild disc bulge. Facet hypertrophy. No canal stenosis. [id number] bilateral foraminal narrowing. L5-S1: Mild disc bulge. Facet hypertrophy. Mild bilateral foraminal narrowing. PT-OP-C Subjective Start: 12/27/21 17:20 Freq: Status: Active Protocol: Document 01/18/22 09:49 AW (Rec: 01/18/22 12:27 AW [id number]) OP-PT Subjective Patient Comments Patient Comments Feeling ok today even though slept on the floor with dogs last night. Right upper back is hurting more today. Mid- back is much better. PT-OP-F Manual Assessment Start: 12/27/21 17:20 Freq: Status: Active Protocol: Document 12/29/21 10:30 AW (Rec: 12/30/21 14:17 AW [id number]) Manual Assessments Soft Tissue Assessment Soft Tissue Mobility Assessment Hyperdense upper traps and rhomboids. Tender to moderate and deep palpation along R paraspinals T8-T11. PT-OP-J Posture/Palpation/Skin Start: 12/27/21 17:20 Freq: Status: Active Protocol: Document 12/29/21 10:30 AW (Rec: 12/30/21 14:17 AW [id number]) Posture Evaluation Comments Posture Comments Pt sits and stands with B shoulders elevated and slightly forward. Head is vaguely forward. Slight anterior pelvic tilt. PT-OP-K Range of Motion Start: 12/27/21 17:20 Freq: Status: Active Protocol: Document 12/29/21 10:30 AW (Rec: 12/30/21 14:17 AW [id number]) Cervical Spine Range of Motion Cervical Spine Active Testing Position Sitting Flexion 25 Extension 45 Rotation Left 75 Rotation Right 75 Lateral Flexion Left 35 Lateral Flexion Right 30 Comments No pain reproduction with any cervical movements. Lumbar Spine Range of Motion Lumbar Spine Active Comments Qualitatively, lumbar flexion is limited with hips fixed. Lumbar spine is relatively flat and extension is also limited. R rotation does reproduce pain along thoracic spine. Hip Goniometric Range of Motion Hip bilat Comments IR limited bilaterally. HS length assessed with SLR with hip flexion to 65 degrees bilaterally. No pain reproduction with AROM, PROM, or overpressure. Hip ROM Limitations Hip ROM Limitations Soft Tissue Tightness PT-OP-L Special Tests Start: 12/27/21 17:20 Freq: Status: Active Protocol: Document 12/29/21 10:30 AW (Rec: 12/30/21 14:22 AW [id number]) Special Tests Cervical Spine Special Tests Spurling's Test Test Results negative Lumbar Spine Special Tests Other- 1 Test Results extension + R rotation quadrant - positive PT-OP-M Strength Start: 12/27/21 17:20 Freq: Status: Active Protocol: Document 12/29/21 10:30 AW (Rec: 12/30/21 14:22 AW [id number]) Cervical Spine Strength Cervical Spine Manual Muscle Testing Testing Position Sitting Flexion (C1-2) 5 Normal Extension 5 Normal Rotation Left 5 Normal Rotation Right 5 Normal Lateral Flexion Left (C3) 5 Normal Lateral Flexion Right (C3) 5 Normal Trunk Strength Trunk Manual Muscle Testing Comments Poor ability to isolate or contract transverse abdominus Scapula Strength Scapula Manual Muscle Testing Right Elevation (C4) 5 Normal Adduction 4 Good Depression 4 Good Comments Pain reproduced with resisted adduction and depression Shoulder Strength Shoulder Manual Muscle Testing bilat Flexion 5 Normal Extension 5 Normal Abduction (C5) 5 Normal External Rotation 4+ Good+ Internal Rotation 5 Normal Hip Strength Hip Manual Muscle Testing bilat Flexion (L2) 5 Normal Extension (S1) 4+ Good+ Abduction 4+ Good+ PT-OP-Q Treatments Start: 12/27/21 17:20 Freq: Status: Active Protocol: Document 01/18/22 09:49 AW (Rec: 01/18/22 12:27 AW [id number]) Therapeutic Exercises Supine Exercises piriformis stretch Supine Exercise Name piriformis stretch Equipment Used opp foot planted Comments HEP TrA Supine Exercise Name TrA - BKFO, SL september, alternating september Comments HEP HS stretch Supine Exercise Name HS stretch Resistance PT passive followed by active with strap Comments HEP Sitting Exercises UT stretch Sitting Exercise Name UT stretch Side bilateral Comments HEP trunk rotation Sitting Exercise Name trunk rotation Side bilateral Resistance gentle AROM Comments HEP review Manual Therapy Treatment Soft Tissue Mobilization UT, LS, cervical paraspinals Body Location UT, LS, cervical paraspinals, subocc Mobilization Type Rolling,Strumming,Sustained Pressure Intensity/Depth Moderate Body Position Hooklying Self-Care/Home Management Treatment Education Patient Education Home Exercise Program Activities Self-Care/Home Management Activities Added UT, HS, and piriformis stretches along with TrA activation in supine. PT-OP-T Assessment and Plan Start: 12/27/21 17:20 Freq: Status: Active Protocol: Document 01/18/22 09:49 AW (Rec: 01/18/22 12:27 AW [id number]) Physical Therapy Assessment Goals Three Impairment work limitations Skidder Operator Goal (LTG) Pt will be able to lift cast iron or other heavy skillets without increase in baseline pain LTG Duration 03/09/22 Two Impairment back pain Short Term Goal (STG) Pt will report back pain 4/10 or less for one week STG Duration 02/02/22 Group Home Goal (LTG) Pt will report back pain 2/10 or less for one week LTG Duration 03/09/22 One Impairment lacks HEP Impairment Pt will be instructed in HEP for pain mangement, thoracic mobility, and reduction in paraspinal tone. STG Duration 02/02/22 Skidder Operator Goal (LTG) Pt will be independent with HEP to better manage his pain symptoms. LTG Duration 03/09/22 Assessment Summary Assessment Bobby is doing well and has reduced mid-back pain. He has been engaging with his HEP and fairly active without increase in pain. Initiated core awareness in supine and gave stretches to imrprove hip mobility and relieve upper trap tension. Physical Therapy Plan Frequency and Duration Frequency of Treatment 1-2x/week Duration of Treatment 10 weeks Plan of Care Start Date 12/29/21 Plan of Care End Date 03/09/22 Therapeutic Interventions Therapeutic Interventions Balance Training,Gait Training ,Home Exercise Program,Manual Therapy,Neuromuscular Re- education,Self-Care/Home Management,Soft Tissue Mobilization,Taping, Therapeutic Activities, Therapeutic Exercises Next Visit Focus/Plan Next Note Type Treatment Note Next Visit Plan Assess response to new stretches and core training in supine. Progress core training in supine or to sitting if tolerated. Consider supine bridge, sidelying open book.
--- NOTE | 2022-01-20 10:35 | PT.OTN ---
Current Diagnoses Other chronic pain (01/20/22) Low back pain, unspecified (01/20/22) Dorsalgia, unspecified (01/20/22) Physical Therapy Treatment Note PT-OP-A Visit Information Start: 12/27/21 17:20 Freq: Status: Active Protocol: Document 01/20/22 09:51 SP (Rec: 01/20/22 10:37 SP [id number]) Out-Patient Physical Therapy Visit Information Visit Information Visit Type Treatment Note Visit Note Pt arrived with adolescent children, well behaved, used treatment room for tx. Ed to pt clinic policy not allowing children not treating with pt unless assist with pt mobility . Visit Start Time 09:51 Visit Stop Time 10:35 Total Visit Minutes 44 Visit Number 3 Number of PROJECT COACH Visits 1 Evaluation Information Evaluation Date 12/29/21 PT-OP-B Current Condition Start: 12/27/21 17:20 Freq: Status: Active Protocol: Document 12/29/21 10:30 AW (Rec: 12/27/21 17:25 AW [id number]) Current Condition History of Current Condition Onset Date one year Current Complaints back pain - low and mid-back; left fibula fracture, left ankle sprain History of Current Condition Bobby has had low back pain for 25+ years. He reports it is stable and he is less concerned about the low back. Last year, he tripped on some roots and had left calf pain, walked funny and started to have mid-back pain more on the right side. He went to PT and had some relief. He started taking 15 mg meloxicam daily after PT recommended and physician agreed. This medication has been helpful. He has good days and bad. If pain is bad, it's hard to walk his dogs or take his kids to school. It is otherwise manageable. Massage helps. He has 6 and 10 yo children who are more than happy to push on his back with their feet. Heat helps. Bobby saw ortho last week who interpreted MRI and did not see anything concerning along the thoracic spine. 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 He has diabetes which is well controlled. Prior Treatments and Tests MRI L/S 10/29/21: Multi-level facet arthropathy. L3-L4: Mild facet hypertrophy. No canal stenosis. [id number] bilateral foraminal narrowing. L4-L5: Mild disc bulge. Facet hypertrophy. No canal stenosis. [id number] bilateral foraminal narrowing. L5-S1: Mild disc bulge. Facet hypertrophy. Mild bilateral foraminal narrowing. PT-OP-C Subjective Start: 12/27/21 17:20 Freq: Status: Active Protocol: Document 01/20/22 09:51 SP (Rec: 01/20/22 10:37 SP [id number]) OP-PT Subjective Patient Comments Patient Comments Pt stated doing well with HEP. Concerned about next few days needing to shoveling and worried about pain. Pt stated remembered that tripped on root and hurt/strain calf than noted changing body mechanics and maybe why back hurting. Is being referred to pain specialist, currently taking tramidol, saw orthopedic in town and got a numbing shot for next 3 weeks to assist pain relief. PT-OP-F Manual Assessment Start: 12/27/21 17:20 Freq: Status: Active Protocol: Document 12/29/21 10:30 AW (Rec: 12/30/21 14:17 AW [id number]) Manual Assessments Soft Tissue Assessment Soft Tissue Mobility Assessment Hyperdense upper traps and rhomboids. Tender to moderate and deep palpation along R paraspinals T8-T11. PT-OP-J Posture/Palpation/Skin Start: 12/27/21 17:20 Freq: Status: Active Protocol: Document 12/29/21 10:30 AW (Rec: 12/30/21 14:17 AW [id number]) Posture Evaluation Comments Posture Comments Pt sits and stands with B shoulders elevated and slightly forward. Head is vaguely forward. Slight anterior pelvic tilt. PT-OP-K Range of Motion Start: 12/27/21 17:20 Freq: Status: Active Protocol: Document 12/29/21 10:30 AW (Rec: 12/30/21 14:17 AW [id number]) Cervical Spine Range of Motion Cervical Spine Active Testing Position Sitting Flexion 25 Extension 45 Rotation Left 75 Rotation Right 75 Lateral Flexion Left 35 Lateral Flexion Right 30 Comments No pain reproduction with any cervical movements. Lumbar Spine Range of Motion Lumbar Spine Active Comments Qualitatively, lumbar flexion is limited with hips fixed. Lumbar spine is relatively flat and extension is also limited. R rotation does reproduce pain along thoracic spine. Hip Goniometric Range of Motion Hip bilat Comments IR limited bilaterally. HS length assessed with SLR with hip flexion to 65 degrees bilaterally. No pain reproduction with AROM, PROM, or overpressure. Hip ROM Limitations Hip ROM Limitations Soft Tissue Tightness PT-OP-L Special Tests Start: 12/27/21 17:20 Freq: Status: Active Protocol: Document 12/29/21 10:30 AW (Rec: 12/30/21 14:22 AW [id number]) Special Tests Cervical Spine Special Tests Spurling's Test Test Results negative Lumbar Spine Special Tests Other- 1 Test Results extension + R rotation quadrant - positive PT-OP-M Strength Start: 12/27/21 17:20 Freq: Status: Active Protocol: Document 12/29/21 10:30 AW (Rec: 12/30/21 14:22 AW [id number]) Cervical Spine Strength Cervical Spine Manual Muscle Testing Testing Position Sitting Flexion (C1-2) 5 Normal Extension 5 Normal Rotation Left 5 Normal Rotation Right 5 Normal Lateral Flexion Left (C3) 5 Normal Lateral Flexion Right (C3) 5 Normal Trunk Strength Trunk Manual Muscle Testing Comments Poor ability to isolate or contract transverse abdominus Scapula Strength Scapula Manual Muscle Testing Right Elevation (C4) 5 Normal Adduction 4 Good Depression 4 Good Comments Pain reproduced with resisted adduction and depression Shoulder Strength Shoulder Manual Muscle Testing bilat Flexion 5 Normal Extension 5 Normal Abduction (C5) 5 Normal External Rotation 4+ Good+ Internal Rotation 5 Normal Hip Strength Hip Manual Muscle Testing bilat Flexion (L2) 5 Normal Extension (S1) 4+ Good+ Abduction 4+ Good+ PT-OP-Q Treatments Start: 12/27/21 17:20 Freq: Status: Active Protocol: Document 01/20/22 09:51 SP (Rec: 01/20/22 10:37 SP [id number]) Therapeutic Exercises Supine Exercises bridge Supine Exercise Name added to HEP Resistance TB #2 loop Reps/Minutes 20 reps x5 s hold Comments cued neutral pelvis w/ TA fac- good painfree piriformis stretch Supine Exercise Name piriformis stretch- hip ER Side bilateral Equipment Used opp foot planted Reps/Minutes use towel. 30 x2 Comments good form and stretch TrA Supine Exercise Name TrA - BKFO, SL september, Equipment Used added TB #2 to KFO, sequencial september updated today Reps/Minutes x10 Comments good response HS stretch Supine Exercise Name HS stretch Side bilateral Equipment Used use towel behind thigh vs strap on foot support Reps/Minutes 30 x2 Comments good feedback stretch diaphragmatic breathing Supine Exercise Name diaphragmatic breathing- with open book Equipment Used hand on chest, hand on abdomen Comments HEP snow angels Supine Exercise Name snow angels Side bilateral Equipment Used states does at home on full roller Comments HEP Standing Exercises ball wall self STMs Standing Exercise Name Es, glut Side bilateral Equipment Used rubber ball Reps/Minutes 2 min Comments Good feedback response Manual Therapy Treatment Soft Tissue Mobilization R lateral ribcage and paraspinals Body Location ES, QL, intercostals: T9-L1 Mobilization Type Cross-Friction,Myofascial Release,Strumming Intensity/Depth Moderate Body Position Prone Comments manual and instruction on self use of ball on wall Self-Care/Home Management Treatment Education Patient Education Pain Management,Posture,Safety Other Education DIscussed use pillows under ribcage, between arms and neck neutral positioning and BLEs for spinal alignment and shld comfort on side. Discussed and reviewed body mechanics with shoveling: hip hinge, use of legs and pivoting to toss not trunk rotation with better understanding but also loosed up dirt first to decrease stress on back. PT-OP-T Assessment and Plan Start: 12/27/21 17:20 Freq: Status: Active Protocol: Document 01/20/22 09:51 SP (Rec: 01/20/22 10:37 SP [id number]) Physical Therapy Assessment Goals Three Impairment work limitations Intermediate Goal (LTG) Pt will be able to lift cast iron or other heavy skillets without increase in baseline pain LTG Duration 03/09/22 Two Impairment back pain Short Term Goal (STG) Pt will report back pain 4/10 or less for one week STG Duration 02/02/22 Intermediate Goal (LTG) Pt will report back pain 2/10 or less for one week LTG Duration 03/09/22 One Impairment lacks HEP Impairment Pt will be instructed in HEP for pain mangement, thoracic mobility, and reduction in paraspinal tone. STG Duration 02/02/22 Intermediate Goal (LTG) Pt will be independent with HEP to better manage his pain symptoms. LTG Duration 03/09/22 Assessment Summary Assessment Pt responded well to manual and good understanding response to self application use of ball on wall. Pt able to progress core marching to sequencial lift BLE into table top/ return with no LBP, added restance to KFO and bridge with hip abd isometric lift to progress core/ hip strengthening. Pt stated back felt better today leaving. Physical Therapy Plan Frequency and Duration Frequency of Treatment 1-2x/week Duration of Treatment 10 weeks Plan of Care Start Date 12/29/21 Plan of Care End Date 03/09/22 Therapeutic Interventions Therapeutic Interventions Balance Training,Gait Training ,Home Exercise Program,Manual Therapy,Neuromuscular Re- education,Self-Care/Home Management,Soft Tissue Mobilization,Taping, Therapeutic Activities, Therapeutic Exercises Next Visit Focus/Plan Next Note Type Treatment Note Next Visit Plan Assess response to new stretches and core training in supine. Progress core training in supine or to sitting if tolerated. Consider supine bridge, sidelying open book.
--- NOTE | 2022-01-27 16:31 | PT.OTN ---
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 He reports it is stable and he is less concerned about the low back. Last year, he tripped on some roots and had left calf pain, walked funny and started to have mid-back pain more on the right side. He went to PT and had some relief. He started taking 15 mg meloxicam daily after PT recommended and physician agreed. This medication has been helpful. He has good days and bad. If pain is bad, it's hard to walk his dogs or take his kids to school. It is otherwise manageable. Massage helps. He has 6 and 10 yo children who are more than happy to push on his back with their feet. Heat helps. Bobby saw ortho last week who interpreted MRI and did not see anything concerning along the thoracic spine. 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 He has diabetes which is well controlled. Prior Treatments and Tests MRI L/S 10/29/21: Multi-level facet arthropathy. L3-L4: Mild facet hypertrophy. No canal stenosis. [id number] bilateral foraminal narrowing. L4-L5: Mild disc bulge. Facet hypertrophy. No canal stenosis. [id number] bilateral foraminal narrowing. L5-S1: Mild disc bulge. Facet hypertrophy. Mild bilateral foraminal narrowing. PT-OP-C Subjective Start: 12/27/21 17:20 Freq: Status: Active Protocol: Document 01/27/22 08:48 AW (Rec: 01/27/22 10:28 AW [id number]) OP-PT Subjective Patient Comments Patient Comments Shoveling was ok. Ball self- mob has been very helpful. Patient Reported Progress Improving PT-OP-F Manual Assessment Start: 12/27/21 17:20 Freq: Status: Active Protocol: Document 12/29/21 10:30 AW (Rec: 12/30/21 14:17 AW [id number]) Manual Assessments Soft Tissue Assessment Soft Tissue Mobility Assessment Hyperdense upper traps and rhomboids. Tender to moderate and deep palpation along R paraspinals T8-T11. PT-OP-J Posture/Palpation/Skin Start: 12/27/21 17:20 Freq: Status: Active Protocol: Document 12/29/21 10:30 AW (Rec: 12/30/21 14:17 AW [id number]) Posture Evaluation Comments Posture Comments Pt sits and stands with B shoulders elevated and slightly forward. Head is vaguely forward. Slight anterior pelvic tilt. PT-OP-K Range of Motion Start: 12/27/21 17:20 Freq: Status: Active Protocol: Document 12/29/21 10:30 AW (Rec: 12/30/21 14:17 AW [id number]) Cervical Spine Range of Motion Cervical Spine Active Testing Position Sitting Flexion 25 Extension 45 Rotation Left 75 Rotation Right 75 Lateral Flexion Left 35 Lateral Flexion Right 30 Comments No pain reproduction with any cervical movements. Lumbar Spine Range of Motion Lumbar Spine Active Comments Qualitatively, lumbar flexion is limited with hips fixed. Lumbar spine is relatively flat and extension is also limited. R rotation does reproduce pain along thoracic spine. Hip Goniometric Range of Motion Hip bilat Comments IR limited bilaterally. HS length assessed with SLR with hip flexion to 65 degrees bilaterally. No pain reproduction with AROM, PROM, or overpressure. Hip ROM Limitations Hip ROM Limitations Soft Tissue Tightness PT-OP-L Special Tests Start: 12/27/21 17:20 Freq: Status: Active Protocol: Document 12/29/21 10:30 AW (Rec: 12/30/21 14:22 AW [id number]) Special Tests Cervical Spine Special Tests Spurling's Test Test Results negative Lumbar Spine Special Tests Other- 1 Test Results extension + R rotation quadrant - positive PT-OP-M Strength Start: 12/27/21 17:20 Freq: Status: Active Protocol: Document 12/29/21 10:30 AW (Rec: 12/30/21 14:22 AW [id number]) Cervical Spine Strength Cervical Spine Manual Muscle Testing Testing Position Sitting Flexion (C1-2) 5 Normal Extension 5 Normal Rotation Left 5 Normal Rotation Right 5 Normal Lateral Flexion Left (C3) 5 Normal Lateral Flexion Right (C3) 5 Normal Trunk Strength Trunk Manual Muscle Testing Comments Poor ability to isolate or contract transverse abdominus Scapula Strength Scapula Manual Muscle Testing Right Elevation (C4) 5 Normal Adduction 4 Good Depression 4 Good Comments Pain reproduced with resisted adduction and depression Shoulder Strength Shoulder Manual Muscle Testing bilat Flexion 5 Normal Extension 5 Normal Abduction (C5) 5 Normal External Rotation 4+ Good+ Internal Rotation 5 Normal Hip Strength Hip Manual Muscle Testing bilat Flexion (L2) 5 Normal Extension (S1) 4+ Good+ Abduction 4+ Good+ PT-OP-Q Treatments Start: 12/27/21 17:20 Freq: Status: Active Protocol: Document 01/27/22 08:48 AW (Rec: 01/27/22 10:28 AW [id number]) Therapeutic Exercises Supine Exercises foam roll Supine Exercise Name foam roll - pec stretch, flexion, hAbd Equipment Used full roll LTR Supine Exercise Name LTR Side bilateral Comments cued PPT/MARISOL bridge Supine Exercise Name HEP review Resistance TB #2 loop Reps/Minutes 20 reps x5 s hold Comments cued neutral pelvis w/ TA fac- good painfree TrA Supine Exercise Name TrA - BK, SL september, alternating september Equipment Used TB #2 for KFO Reps/Minutes x10 Comments good response Prone Exercises GH/t-spine extension Prone Exercise Name GH/t-spine extension Reps/Minutes lift palms up and hold 5 sec x 10 Comments HEP Sidelying Exercises open book Sidelying Exercise Name open book Side bilateral Comments HEP review Sitting Exercises HS stretch Sitting Exercise Name HS stretch Side bilateral Comments option for HEP; pt states sitting stretch preferred Standing Exercises paloff press Standing Exercise Name paloff press Resistance cable stack - no weight added Comments HEP Manual Therapy Treatment Soft Tissue Mobilization R lateral ribcage and paraspinals Body Location ES, QL, intercostals: T9-L1 Mobilization Type Cross-Friction,Myofascial Release,Strumming Intensity/Depth Moderate Body Position Prone Comments Rib spring with deep breaths to improve rib mob Self-Care/Home Management Treatment Education Patient Education Home Exercise Program Other Education Added prone GH extension for HEP. Paloff press offered as an option for gym workouts. Pt goes to [facility]. PT-OP-T Assessment and Plan Start: 12/27/21 17:20 Freq: Status: Active Protocol: Document 01/27/22 08:48 AW (Rec: 01/27/22 10:28 AW [id number]) Physical Therapy Assessment Goals Three Impairment work limitations Manager Forensic Goal (LTG) Pt will be able to lift cast iron or other heavy skillets without increase in baseline pain LTG Duration 03/09/22 Two Impairment back pain Short Term Goal (STG) Pt will report back pain 4/10 or less for one week STG Duration 02/02/22 Usp Goal (LTG) Pt will report back pain 2/10 or less for one week LTG Duration 03/09/22 One Impairment lacks HEP Impairment Pt will be instructed in HEP for pain mangement, thoracic mobility, and reduction in paraspinal tone. STG Duration 02/02/22 Manager Forensic Goal (LTG) Pt will be independent with HEP to better manage his pain symptoms. LTG Duration 03/09/22 Assessment Summary Assessment Bobby reported good benefit from using ball on wall for self-STM. He is feeling good and able to engage with his HEP without pain. He goes to [facility] and is interested in learning exercises he can do at the gym. Physical Therapy Plan Frequency and Duration Frequency of Treatment 1-2x/week Duration of Treatment 10 weeks Plan of Care Start Date 12/29/21 Plan of Care End Date 03/09/22 Therapeutic Interventions Therapeutic Interventions Balance Training,Gait Training ,Home Exercise Program,Manual Therapy,Neuromuscular Re- education,Self-Care/Home Management,Soft Tissue Mobilization,Taping, Therapeutic Activities, Therapeutic Exercises Next Visit Focus/Plan Next Note Type Treatment Note Next Visit Plan Progress core training to sitting, standing as tolerated . Continue with thoracic mobility work - consider quadruped.
--- NOTE | 2022-02-16 13:30 | PT-OP ANOTE ---
Pt cancelled PT appt day prior due to has to work.
--- NOTE | 2022-02-22 07:30 | PT-OP ANOTE ---
Pt cancelled all appts in Mar rescheduled to Apr, work schedule changed same hrs as clinic open and unable to attend. [facility] care team coordinator scheduler stated danie RAMOS, will return in Apr. States HEP helping and compliant.
--- NOTE | 2022-04-25 08:59 | PT.OPDS ---
Current Diagnoses Other chronic pain (01/27/22) Low back pain, unspecified (01/27/22) Dorsalgia, unspecified (01/27/22) Visit Care Team Role Provider Type Cresencio Baltazar MD Attending Provider Physician Family Provider Primary Care Provider Referring Provider Specialty: Family Practice Address: [address] [place] [address], [id number] Email: [email or web address] Visit Number Visit Number 4 Discharge Summary PT-OP-B Current Condition Start: 12/27/21 17:20 Freq: Status: Active Protocol: Document 12/29/21 10:30 AW (Rec: 12/27/21 17:25 AW [id number]) Current Condition History of Current Condition Onset Date one year Current Complaints back pain - low and mid-back; left fibula fracture, left ankle sprain History of Current Condition Bobby has had low back pain for 25+ years. He reports it is stable and he is less concerned about the low back. Last year, he tripped on some roots and had left calf pain, walked funny and started to have mid-back pain more on the right side. He went to PT and had some relief. He started taking 15 mg meloxicam daily after PT recommended and physician agreed. This medication has been helpful. He has good days and bad. If pain is bad, it's hard to walk his dogs or take his kids to school. It is otherwise manageable. Massage helps. He has 6 and 10 yo children who are more than happy to push on his back with their feet. Heat helps. Bobby saw ortho last week who interpreted MRI and did not see anything concerning along the thoracic spine. 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 He has diabetes which is well controlled. Prior Treatments and Tests MRI L/S 10/29/21: Multi-level facet arthropathy. L3-L4: Mild facet hypertrophy. No canal stenosis. Kdds-qk-[id number] bilateral foraminal narrowing. L4-L5: Mild disc bulge. Facet hypertrophy. No canal stenosis. [id number] bilateral foraminal narrowing. L5-S1: Mild disc bulge. Facet hypertrophy. Mild bilateral foraminal narrowing. PT-OP-C Subjective Start: 12/27/21 17:20 Freq: Status: Active Protocol: Document 01/27/22 08:48 AW (Rec: 01/27/22 10:28 AW [id number]) OP-PT Subjective Patient Comments Patient Comments Shoveling was ok. Ball self- mob has been very helpful. Patient Reported Progress Improving PT-OP-F Manual Assessment Start: 12/27/21 17:20 Freq: Status: Active Protocol: Document 12/29/21 10:30 AW (Rec: 12/30/21 14:17 AW [id number]) Manual Assessments Soft Tissue Assessment Soft Tissue Mobility Assessment Hyperdense upper traps and rhomboids. Tender to moderate and deep palpation along R paraspinals T8-T11. PT-OP-J Posture/Palpation/Skin Start: 12/27/21 17:20 Freq: Status: Active Protocol: Document 12/29/21 10:30 AW (Rec: 12/30/21 14:17 AW [id number]) Posture Evaluation Comments Posture Comments Pt sits and stands with B shoulders elevated and slightly forward. Head is vaguely forward. Slight anterior pelvic tilt. PT-OP-K Range of Motion Start: 12/27/21 17:20 Freq: Status: Active Protocol: Document 12/29/21 10:30 AW (Rec: 12/30/21 14:17 AW [id number]) Cervical Spine Range of Motion Cervical Spine Active Testing Position Sitting Flexion 25 Extension 45 Rotation Left 75 Rotation Right 75 Lateral Flexion Left 35 Lateral Flexion Right 30 Comments No pain reproduction with any cervical movements. Lumbar Spine Range of Motion Lumbar Spine Active Comments Qualitatively, lumbar flexion is limited with hips fixed. Lumbar spine is relatively flat and extension is also limited. R rotation does reproduce pain along thoracic spine. Hip Goniometric Range of Motion Hip bilat Comments IR limited bilaterally. HS length assessed with SLR with hip flexion to 65 degrees bilaterally. No pain reproduction with AROM, PROM, or overpressure. Hip ROM Limitations Hip ROM Limitations Soft Tissue Tightness PT-OP-L Special Tests Start: 12/27/21 17:20 Freq: Status: Active Protocol: Document 12/29/21 10:30 AW (Rec: 12/30/21 14:22 AW [id number]) Special Tests Cervical Spine Special Tests Spurling's Test Test Results negative Lumbar Spine Special Tests Other- 1 Test Results extension + R rotation quadrant - positive PT-OP-M Strength Start: 12/27/21 17:20 Freq: Status: Active Protocol: Document 12/29/21 10:30 AW (Rec: 12/30/21 14:22 AW [id number]) Cervical Spine Strength Cervical Spine Manual Muscle Testing Testing Position Sitting Flexion (C1-2) 5 Normal Extension 5 Normal Rotation Left 5 Normal Rotation Right 5 Normal Lateral Flexion Left (C3) 5 Normal Lateral Flexion Right (C3) 5 Normal Trunk Strength Trunk Manual Muscle Testing Comments Poor ability to isolate or contract transverse abdominus Scapula Strength Scapula Manual Muscle Testing Right Elevation (C4) 5 Normal Adduction 4 Good Depression 4 Good Comments Pain reproduced with resisted adduction and depression Shoulder Strength Shoulder Manual Muscle Testing bilat Flexion 5 Normal Extension 5 Normal Abduction (C5) 5 Normal External Rotation 4+ Good+ Internal Rotation 5 Normal Hip Strength Hip Manual Muscle Testing bilat Flexion (L2) 5 Normal Extension (S1) 4+ Good+ Abduction 4+ Good+ PT-OP-T Assessment and Plan Start: 12/27/21 17:20 Freq: Status: Active Protocol: Document 04/25/22 08:57 AW (Rec: 04/25/22 08:59 AW [id number]) Physical Therapy Plan Discharge Physical Therapy Discharge Reasons No Longer Attending PT Discharge Comments Pt has cancelled multiple appointments via [employer] text messages. Called and spoke with pt today who states he has been extremely busy with work but his back pain has improved with exercises and he is ok with discharging from therapy. He understands he will need a new referral to return to PT.
== END 2022-04-26 09:59 | disposition home or self-care (01) ==
LOC: PHYS 09:45
PROVIDERS: Family Provider Family Medicine; PCP Family Medicine; Referring Provider Family Medicine; Visit Provider Family Medicine
DX: M54.9 Dorsalgia, unspecified (principal); M54.50 Low back pain, unspecified; G89.29 Other chronic pain
CPT/HCPCS: 97110; 97140; 97161

== ENCOUNTER → 2022-09-05 10:22 | Outpatient (CLI) | payer OTHER, MEDICAID, SELFPAY ==
[2022-09-05 11:54] LABS: Hemoglobin A1C% w Est Avg Glu 8.2 % (4.0-6.0)
[2022-09-05 12:03] LABS: Alanine Aminotransferase 60 IU/L (<50); Albumin 4.3 g/dL (3.5-5.0); Albumin Globulin Ratio 1.3 (1.0-2.8); Alkaline Phosphatase 57 U/L (38-126); Aspartate Aminotransferase 40 IU/L (17-59); BUN Creatinine Ratio 15.3 (6-22); Bilirubin Total 0.6 mg/dL (0.2-1.3); Blood Urea Nitrogen 13 mg/dL (9-20); Calcium 9.1 mg/dL (8.4-10.2); Carbon Dioxide 27 mmol/L (22-32); Chloride 100 mmol/L (98-107); Cholesterol 103 mg/dL (140-199); Estimated Glomerular Filt Rate > 60 mL/min (>60); Globulin 3.4 g/dL (1.7-4.1); Glucose 154 mg/dL (70-100); HDL Cholesterol 26 mg/dL (40-60); HEMOLYSIS 15 (0-50); LDL Cholesterol Calculated 16 mg/dL (<100); Potassium 4.1 mmol/L (3.4-5.1); Sodium 138 mmol/L (137-145); Total Protein 7.7 g/dL (6.3-8.2); Triglycerides 307 mg/dL (35-150)
[2022-09-05 16:20] LABS: Microalbumin Urine Random 2.2 mg/dL (0-1.6)
[2022-09-05 16:23] LABS: Creatinine Urine Random 81.8 mg/dL; Microalbumi Creatinin Ratio Ur 26.8 ug/mg CR (<30)
== END ==
PROVIDERS: Family Provider Family Medicine; PCP Family Medicine; Referring Provider Family Medicine; Visit Provider Family Medicine
DX: E11.69 Type 2 diabetes mellitus with other specified complication (principal); E66.9 Obesity, unspecified; E78.5 Hyperlipidemia, unspecified; I10 Essential (primary) hypertension
CPT/HCPCS: 36415; 80053; 80061; 82043; 82570; 83036

== ENCOUNTER → 2024-01-01 17:57 | Outpatient (CLI) | payer OTHER, MEDICAID, SELFPAY | PROVIDERS: Family Provider Family Medicine; PCP Family Medicine; Visit Provider Nurse Practitioner Family | DX: J02.9 Acute pharyngitis, unspecified (principal) | CPT/HCPCS: 87880 ==

== ENCOUNTER → 2024-09-16 18:48 | Outpatient (CLI) | payer OTHER, SELFPAY | PROVIDERS: Family Provider Family Medicine; PCP Family Medicine; Visit Provider Nurse Practitioner Family | DX: J02.9 Acute pharyngitis, unspecified (principal) | CPT/HCPCS: 87070; 87147 ==

== ENCOUNTER → 2024-10-10 09:33 | Outpatient (CLI) | payer OTHER, SELFPAY ==
[2024-10-10 10:43] LABS: COVID-19 CEPHEID 4-PLEX PCR Negative (Negative); Influenza A - CEPHEID Flu A NEGATIVE (NEGATIVE); Influenza B - CEPHEID Flu B NEGATIVE (NEGATIVE); Respiratory Syncytial Virus Negative (Negative)
== END ==
PROVIDERS: Family Provider Family Medicine; PCP Family Medicine; Visit Provider Physician Assistant
DX: J02.9 Acute pharyngitis, unspecified (principal); R05.9 Cough, unspecified
CPT/HCPCS: 87635; 87400 ×2; 87420; 0241U; 87070